=== PATIENT | female | born 1955 | race Caucasian/White ===

== ENCOUNTER → 2017-06-25 | Emergency (ER) | payer OTHER ==
[~2017-06-25] VITALS: Ht 162.6 cm; Wt 79.4 kg
[~2017-06-25] MED LIST: ATENOLOL100 MG PO; CEPHALEXIN500 MG PO; DOXEPIN HCL10 MG PO; DOXYCYCLINE HY100 MG PO; ESTRACE1 MG PO; GABAPENTIN300 MG PO; IPRAT-ALBUT 0.5-3 ML INH; LACTULOSE10 GM/151 PO; LEVOTHYROXINE50 MCG PO; LISINOPRIL10 MG PO; LYRICA150 MG PO; MORPHINE SULFAT15 M1 PO; NORCO 5-325 TA1 EACH PO; OXYCODON-ACETA1 EAC2 PO; OXYCODONE HCL5 MG PO; OXYCODONE-ACET1 EAC3 PO; PERCOCET 5-3251 EACH PO; PREDNISONE20 MG PO; ROBAXIN-750750 MG PO; ROBAXIN500 MG PO; TIZANIDINE HCL4 MG PO; ZOFRAN ODT4 MG SL
== END ==
LOC: ED 00:16
DX: J20.9 Acute bronchitis, unspecified (principal); I10 Essential (primary) hypertension; Z87.891 Personal history of nicotine dependence; Z90.710 Acquired absence of both cervix and uterus; Z79.899 Other long term (current) drug therapy
CPT/HCPCS: 71020; 99283

== ENCOUNTER 2017-09-21 09:55 | Day surgery (SDC) | payer OTHER ==
[~2017-09-21] VITALS: Ht 162.6 cm; Wt 93.0 kg
--- NOTE | 2017-09-21 11:10 | NUR ---
09/21/17 1110 Maryam Maza 1104-MAXIMILIANO ARRIVED TO PACU ON 10L MASK O2 SAT 100% PATIENT NONAROUSABLE ORAL AIRWAY IN PLACE. JEET TOOK HOME AM MEDS. RN HOLDING AIRWAY.
--- NOTE | 2017-09-29 10:17 | OR ---
[facility] [address] [place], [place] [address] Signed DATE OF OPERATION: 09/21/2017 SURGEON: Soraida Campbell MD PREOPERATIVE DIAGNOSES: 1. Gastroesophageal reflux disease. 2. Esophageal dysphagia (lump). 3. Change in voice (raspy). POSTOPERATIVE DIAGNOSIS: Unremarkable upper endoscopy. PROCEDURES: EGD with CLOtest and antral biopsies. ESTIMATED BLOOD LOSS: None. INDICATIONS: Aydee is a 62-year-old female, who has had trouble with acid reflux for years. She takes Prilosec with good results. She has also had previous sinus surgery and a history of asthma. She has had some trouble lately with wheezing and coughing and feels a lump in her throat. She points towards the sternal notch and her larynx. She said it has been there at least 5 months. She has also had some pain in her ears. She has been on antibiotics and prednisone with some help. However, when she stops the medication, the symptoms seem to return. She told me her voice is much more raspy than usual. She had put on thyroid medication and that has helped her with some of her other issues. Given her current symptoms, she was asked to see me for an upper endoscopy. In the office, I gave Aydee a pamphlet on upper endoscopy and we looked at that together along with the risks including, but not limited to gas bloating, crampy abdominal pain, bleeding, perforation, requiring surgery, and missed diagnosis. In addition, we discussed the need for IV conscious sedation. Aydee has had trouble with chronic pain since her lumbar surgery and she requires 10 to 12 oxycodone per day. Consequently, our simple Versed and fentanyl would not be enough to get her sleep. We therefore asked an anesthesia provider to help us with increased monitoring sedation with propofol. She had expressed understanding and wished to proceed. PROCEDURE NOTE: Aydee was taken into our endoscopy suite and placed in a supine semi-recumbent position. She was given IV sedation with propofol per our nurse senior clinical project manager. As expected, it Electronically Signed By: SORAIDA CAMPBELL MD 09/29/17 1017 PATIENT NAME: AYDEE DINH OPERATIVE REPORT DATE OF : 59 PHYSICIAN: SORAIDA CAMPBELL MD REPORT #: [id number] REPORT IS CONFIDENTIAL AND NOT TO BE RELEASED WITHOUT AUTHORIZATION [facility] [address] [place] [id number] Signed bothers her arm a little more than most patients. This was consistent with her chronic pain syndromes and her narcotic use. Once she was fully sedated, we placed her a bite block between her teeth. The adult gastroscope was then introduced and advanced all the way around into the third portion of the duodenum under direct visualization of camera without difficulty. She told me about her previous sphincter of Oddi dysfunction, requiring endoscopic sphincterotomy. With our forward-viewing scope, however, we could not see the ampulla. Otherwise, the duodenum and pyloric channel were unremarkable. The stomach was entirely unremarkable. We took a biopsy of the antrum for CLOtest as well as pathologic review. Upon retroflexion of the scope, there was no evidence of an obvious hiatal hernia. She may have a poor flap valve mechanism. The scope was withdrawn up through the area of the GE junction, which was compliant without stricture. The Z-line remains intact. There was no Wesley's mucosa, no distal esophagitis. The middle and upper esophagus were unremarkable. After this, the gas was suctioned out and the gastroscope removed. Aydee tolerated the procedure quite well. RECOMMENDATIONS: I will see Aydee back in the office in a week or 2 to follow up not only her EGD, but her barium swallow as well. Soraida Campbell MD ALB/MODL /[id number] cc: MD Dennis Story MD Christopher Lundquist, MD Electronically Signed By: SORAIDA CAMPBELL MD 09/29/17 1017 PATIENT NAME: AYDEE DINH ADOLFO OPERATIVE REPORT DATE OF : 59 PHYSICIAN: SORAIDA CAMPBELL MD REPORT #: [id number] REPORT IS CONFIDENTIAL AND NOT TO BE RELEASED WITHOUT AUTHORIZATION
== END 2017-09-21 11:47 | disposition home or self-care (01) ==
LOC: OPS 09:55 → DS 09:55
PROVIDERS: Colon & Rectal Surgery
PROC: 0DB68ZX Excision of Stomach, Via Natural or Artificial Opening Endoscopic, Diagnostic (ICD-10-PCS; principal; 2017-09-21 10:15)
DX: K29.50 Unspecified chronic gastritis without bleeding (principal); K21.9 Gastro-esophageal reflux disease without esophagitis; Z90.49 Acquired absence of other specified parts of digestive tract; Z90.710 Acquired absence of both cervix and uterus; Z98.890 Other specified postprocedural states; Z79.899 Other long term (current) drug therapy
CPT/HCPCS: 86677; 99156; 99157; J2704; J7120

== ENCOUNTER 2018-04-23 22:18 | Emergency (ER) | payer OTHER, MEDICARE ==
[~2018-04-23] VITALS: Ht 162.6 cm; Wt 93.0 kg
--- OUTSIDE RECORDS SUMMARY | ~2018-04-23 | XMS | Encounter Summary ---
Demographics + + + | Address | [address] | | | [place] [address] | + + + | Home Phone | | + + + | Preferred Language | Unknown | + + + | Marital Status | | + + + | Catholic Affiliation | 1041 | + + + | Race | Unknown | + + + | Ethnic Group | Unknown | + + + Author + + + | Author | [facility] | | | and [place] | + + + | Organization | [facility] | | | and [place] | + + + | Address | Unknown | + + + | Phone | Unavailable | + + + Support + + + + + | Name | Relationship | Address | Phone | + + + + + | Chau Charles | ECON | [address] | | | | | [place], [place] | | | | | [address] | | + + + + + | Emma Wheeler | ECON | NA | | | | | [place] | | + + + + + | Chalo Pascal | ECON | NA | | | | | [place] | | + + + + + Care Team Providers + +------+ + | Care Grinding Wheel Inspector Name | Role | Phone | + +------+ + | Alexander Costa MD | PCP | | + +------+ + Reason for Referral Diagnostic/Screening (Routine) +--------+--------+ + + + + | Status | Reason | Specialty | Diagnoses / | Referred By | Referred To | | | | | Procedures | Contact | Contact | +--------+--------+ + + + + | Closed | | Radiology | Diagnoses | [place], | [facility] | | | | | S/P lumbar | [place] | [address] | | | | | fusion | [place] | [place], | | | | | Lumbar | [address] | [place] | | | | | radiculopath | [address] | [address] | | | | | y | [address] | Phone: | | | | | Sacroiliac | Janice [place], | [phone] | | | | | joint pain | [place] [address] | Fax: | | | | | Procedures | Phone: | [phone] | | | | | MRI Lumbar | [phone] | | | | | | Spine w wo | Fax: | | | | | | Contrast | [phone] | | | | | | 02/07 Call to | | | | | | | pt to see | | | | | | | where she | | | | | | | would like | | | | | | | it done. | | | +--------+--------+ + + + + Diagnostic/Screening (Routine) +--------+--------+ + + + + | Status | Reason | Specialty | Diagnoses / | Referred By | Referred To | | | | | Procedures | Contact | Contact | +--------+--------+ + + + + | Closed | | Radiology | Diagnoses | [place], | [facility] | | | | | S/P lumbar | [place] | [address] | | | | | fusion | [place] | Janice Camacho, | | | | | Lumbar | [address] | [place] | | | | | radiculopath | [address] | [address] | | | | | y | [address] | Phone: | | | | | Sacroiliac | [place], | [phone] | | | | | joint pain | [place] [address] | Fax: | | | | | Procedures | Phone: | [phone] | | | | | MRI Lumbar | [phone] | | | | | | Spine w wo | Fax: | | | | | | Contrast | [phone] | | | | | | 02/07 Call to | | | | | | | pt to see | | | | | | | where she | | | | | | | would like | | | | | | | it done. | | | +--------+--------+ + + + + Reason for Visit Diagnostic/Screening (Routine) +--------+--------+ + + + + | Status | Reason | Specialty | Diagnoses / | Referred By | Referred To | | | | | Procedures | Contact | Contact | +--------+--------+ + + + + | Closed | | Radiology | Diagnoses | [place], | [facility] | | | | | S/P lumbar | [place] | [address] | | | | | fusion | [place] | Janice Camacho, | | | | | Lumbar | [address] | [place] | | | | | radiculopath | [address] | [address] | | | | | y | [address] | Phone: | | | | | Sacroiliac | [place], | [phone] | | | | | joint pain | [place] [address] | Fax: | | | | | Procedures | Phone: | [phone] | | | | | MRI Lumbar | [phone] | | | | | | Spine w wo | Fax: | | | | | | Contrast | [phone] | | | | | | 02/07 Call to | | | | | | | pt to see | | | | | | | where she | | | | | | | would like | | | | | | | it done. | | | +--------+--------+ + + + + Encounter Details +--------+ + + + + | Date | Type | Department | Care Team | Description | +--------+ + + + + | 04/03/ | Hospital | [facility] | [facility] | S/P lumbar fusion; | | 2017 | Encounter | [facility] MRI [address] | [place] [address] | Lumbar | | | | [address], | [address] | radiculopathy; | | | | [place] [address] | [place], [place] | Sacroiliac joint | | | | [phone] | [address] | pain | | | | | | | +--------+ + + + + Social History + + + +--------+ + | Tobacco Use | Types | Packs/Day | Years | Date | | | | | Used | | + + + +--------+ + | Former Smoker | Cigarettes | 0.5 | 15 | Quit: 08/29/2008 | + + + +--------+ + + +---+---+---+ | Smokeless Tobacco: | | | | | Never Used | | | | + +---+---+---+ + + +---------+ + | Alcohol Use | Drinks/We | oz/Week | Comments | | | ek | | | + + +---------+ + | No | 0 | 0.0 | Alcoholic in remission | | | Standard | | | | | drinks or | | | | | | | | | | equivalen | | | | | t | | | + + +---------+ + + + + | Sex Assigned at | Date Recorded | | | | + + + | Not on file | | + + + as of this encounter Medications at Time of Discharge + + +-------+---------+ + + | Medication | Sig. | Disp. | Refills | Start | End Date | | | | | | Date | | + + +-------+---------+ + + | atenolol | Take 100 mg by mouth | | | | | | (TENORMIN) 100 MG | Daily. | | | | | | tablet | | | | | | + + +-------+---------+ + + | buprenorphine | DIS 1 T UNT TID TO | | 0 | 01/27/20 | | | (SUBUTEX) 8 mg SUBL | LAST 28 DAYS. | | | 18 | | + + +-------+---------+ + + | DULoxetine | TK 1 C PO BID | | 1 | 01/20/20 | | | (CYMBALTA) [address] | | | | 18 | | | capsule | | | | | | + + +-------+---------+ + + | estradiol | Take 1 mg by mouth | | | | | | (ESTRACE) 1 mg | Daily. | | | | | | tablet | | | | | | + + +-------+---------+ + + | levothyroxine | Take 50 mcg by mouth | | | | | | (SYNTHROID) 50 mcg | every morning | | | | | | tablet | (before breakfast). | | | | | + + +-------+---------+ + + | lisinopril | Take 5 mg by mouth | | 12 | 08/09/20 | | | (PRINIVIL, ZESTRIL) | Daily. | | | 17 | | | 5 mg tablet | | | | | | + + +-------+---------+ + + | meloxicam (MOBIC) | Take 7.5 mg by mouth | | | | | | 7.5 mg tablet | Daily. | | | | | + + +-------+---------+ + + | methocarbamol | Take 2 tablets by | | 2 | 08/24/20 | | | (ROBAXIN) 750 mg | mouth nightly. | | | 17 | | | tablet | | | | | | + + +-------+---------+ + + | NARCAN 4 MG/0.1ML | U UTD FOR EMERGENCY | | 0 | 08/15/20 | | | | | | | 17 | | + + +-------+---------+ + + | pregabalin | Take 150 mg by mouth | | | | | | (LYRICA) 150 MG | 2 times daily. | | | | | | capsule | | | | | | + + +-------+---------+ + + | traZODone | TK 1 T PO QHS | | 0 | 01/13/20 | | | (DESYREL) 100 mg | | | | 18 | | | tablet | | | | | | + + +-------+---------+ + + as of this encounter Plan of Treatment +--------+---------+ + + + | Date | Type | Specialty | Care Team | Description | +--------+---------+ + + + | 05/17/ | Office | Neurosurgery | [facility] | | | 2018 | Visit | | [facility] [address] | | | | | | [address] | | | | | | [place] | | | | | | [address] | | | | | | | | +--------+---------+ + + + as of this encounter Procedures + +--------+ + + + | Procedure Name | Priori | Date/Time | Associated Diagnosis | Comments | | | ty | | | | + +--------+ + + + | MRI LUMBAR SPINE W | Routin | 04/03/2018 | S/P lumbar fusion | Results for this | | WO CONTRAST | e | 1443 PDT | Lumbar | procedure are in the | | | | | radiculopathy | results section. | | | | | Sacroiliac joint | | | | | | pain | | + +--------+ + + + in this encounter Results MRI Lumbar Spine w wo Contrast (04/03/2018 1443) + + + | Narrative | Performed At | + + + | MRI LUMBAR SPINE W WO CONTRAST 04/03/2018 2:00 PM HISTORY: | [facility] | | Previous lumbar fusion with ongoing radicular right greater than left | | | leg symptoms. COMPARISON: Multiple priors. PROTOCOL: Sagittal | | | T2, sagittal T1, axial T2, axial T1, sagittal STIR, coronal T2, | | | sagittal T1 fat sat postgadolinium, axial T1 fat sat post gadolinium. | | | The patient was administered 9 cc Gadavist. FINDINGS: There is | | | hardware for posterior fusion from L4 through S1. Interbody hardware | | | are observed from L3-4 through L5-S1. The interbody hardware at L3-4 | | | extends slightly beyond the anterior borders of the vertebral bodies, | | | as before. The hardware are intact otherwise. There is mild | | | spondylosis. There remains minimal anterolistheses of L3 over L4 and | | | L4 over L5. Vertebral body height are preserved with no evidence for | | | compression fractures. Mild disc narrowing is at L2-3. Disc | | | desiccation are observed of the lower thoracic spine and lumbar | | | spine. Imaged spinal cord and cauda equina demonstrate normal | | | signal with no evidence for myelomalacia or mass lesions. The conus | | | medullaris terminates at level L1, which is normal. Sagittal | | | images demonstrate tiny posterior disc bulging at T11-12 with no | | | stenosis. L2-3: A 3 mm posterior disc bulge is present along with | | | moderate facet hypertrophy and ligamentum flavum hypertrophy. Small | | | facet effusions are present. There is severe central stenosis with AP | | | dimension of the canal measuring 5 mm. Mild to moderate bilateral | | | neural foraminal canal stenoses are seen. L3-4: Congenitally | | | short pedicles are visualized along with moderate facet hypertrophy. | | | There is mild central stenosis with AP dimension of the canal | | | measuring 10 mm. No neural foraminal canal stenosis is seen. | | | L4-5: Moderate facet hypertrophy is present with no stenosis. | | | L5-S1: No central canal or neural foramina canal stenosis. Imaged | | | abdomen and pelvis demonstrate no acute findings. IMPRESSION - | | | Posterior fusion from L4 through S1. Multilevel degenerative | | | changes including severe central stenosis at L2-3 and mild central | | | stenoses at L3-4. Mild to moderate bilateral neural foraminal canal | | | stenoses are at L2-3. Dictated and Signed by: Gildardo Boyle MD | | | Electronically signed: 04/03/2018 3:54 PM | | + + + + + | Procedure Note | + + | [place], Rad Results In - 04/03/2018 1558 PDT MRI LUMBAR SPINE W WO CONTRAST 04/03/2018 | | 2:00 PM HISTORY: Previous lumbar fusion with ongoing radicular right greater than | | leftleg symptoms.COMPARISON: Multiple priors.PROTOCOL: Sagittal T2, sagittal T1, axial | | T2, axial T1, sagittal STIR, coronalT2, sagittal T1 fat sat postgadolinium, axial T1 fat | | sat post gadolinium. Thepatient was administered 9 cc Gadavist.FINDINGS:There is | | hardware for posterior fusion from L4 through S1. Interbody hardwareare observed from | | L3-4 through L5-S1. The interbody hardware at L3-4 extendsslightly beyond the anterior | | borders of the vertebral bodies, as before. Thehardware are intact otherwise. There is | | mild spondylosis. There remains minimalanterolistheses of L3 over L4 and L4 over L5. | | Vertebral body height arepreserved with no evidence for compression fractures.Mild disc | | narrowing is at L2-3. Disc desiccation are observed of the lowerthoracic spine and | | lumbar spine.Imaged spinal cord and cauda equina demonstrate normal signal with no | | evidencefor myelomalacia or mass lesions. The conus medullaris terminates at level | | L1,which is normal.Sagittal images demonstrate tiny posterior disc bulging at T11-12 | | with nostenosis.L2-3: A 3 mm posterior disc bulge is present along with moderate | | facethypertrophy and ligamentum flavum hypertrophy. Small facet effusions arepresent. | | There is severe central stenosis with AP dimension of the canalmeasuring 5 mm. Mild to | | moderate bilateral neural foraminal canal stenoses areseen.L3-4: Congenitally short | | pedicles are visualized along with moderate facethypertrophy. There is mild central | | stenosis with AP dimension of the canalmeasuring 10 mm. No neural foraminal canal | | stenosis is seen. L4-5: Moderate facet hypertrophy is present with no stenosis. L5-S1: | | No central canal or neural foramina canal stenosis.Imaged abdomen and pelvis demonstrate | | no acute findings.IMPRESSION -Posterior fusion from L4 through S1.Multilevel | | degenerative changes including severe central stenosis at L2-3 andmild central stenoses | | at L3-4. Mild to moderate bilateral neural foraminal canalstenoses are at L2-3.Dictated | | and Signed by: Gildardo Boyle MD Electronically signed: 04/03/2018 3:54 PM | |Sagittal images demonstrate tiny posterior disc bulging at T11-12 with no | |stenosis. | | | |L2-3: A 3 mm posterior disc bulge is present along with moderate facet | |hypertrophy and ligamentum flavum hypertrophy. Small facet effusions are | |present. There is severe central stenosis with AP dimension of the canal | |measuring 5 mm. Mild to moderate bilateral neural foraminal canal stenoses are | |seen. | | | |L3-4: Congenitally short pedicles are visualized along with moderate facet | |hypertrophy. There is mild central stenosis with AP dimension of the canal | |measuring 10 mm. No neural foraminal canal stenosis is seen. | | | |L4-5: Moderate facet hypertrophy is present with no stenosis. | | | |L5-S1: No central canal or neural foramina canal stenosis. | | | |Imaged abdomen and pelvis demonstrate no acute findings. | | | |IMPRESSION - | |Posterior fusion from L4 through S1. | | | |Multilevel degenerative changes including severe central stenosis at L2-3 and | |mild central stenoses at L3-4. Mild to moderate bilateral neural foraminal canal | |stenoses are at L2-3. | | | |Dictated and Signed by: Gildardo Boyle MD | | Electronically signed: 04/03/2018 3:54 PM | + + + +---------+ + + | Performing | Address | City/State/Zipcode | Phone Number | | Organization | | | | + +---------+ + + | [facility] | | | | + +---------+ + + in this encounter Visit Diagnoses + + | Diagnosis | + + | S/P lumbar fusion | + + | Arthrodesis status | + + | Lumbar radiculopathy | + + | Thoracic or lumbosacral neuritis or radiculitis, unspecified | + + | Sacroiliac joint pain | + + | Disorders of sacrum | + + Administered Medications + +--------+ +-------+------+------+ | Medication Order | MAR | Action | Dose | Rate | Site | | | Action | Date | | | | + +--------+ +-------+------+------+ | gadobutrol (GADAVIST) injection | Given | 04/03/2018 | 9 mLs | | | | 9 mL 9 mL, Intravenous, ONCE | | 14:29 | | | | | PRN, Other, Starting 04/03/18 | | PDT | | | | | at 1414, For 1 dose, MRI | | | | | | + +--------+ +-------+------+------+ +---+---+ | | | +---+---+ in this encounter"
--- OUTSIDE RECORDS SUMMARY | ~2018-04-23 | XMS | Encounter Summary ---
Demographics + + + | Address | [address] | | | [place] [address] | + + + | Home Phone | | + + + | Preferred Language | Unknown | + + + | Marital Status | | + + + | Anabaptist Affiliation | 1041 | + + + | Race | Unknown | + + + | Ethnic Group | Unknown | + + + Author + + + | Author | [facility] | | | and [place] | + + + | Organization | [facility] | | | and [facility] | + + + | Address | Unknown | + + + | Phone | Unavailable | + + + Support + + + + + | Name | Relationship | Address | Phone | + + + + + | Chau Charles | ECON | [address] | | | | | [place], [place] | | | | | [address] | | + + + + + | Emma Wheeler | ECON | NA | | | | | [place] | | + + + + + | Chalo Pascal | ECON | NA | | | | | [place] | | + + + + + Care Team Providers + +------+ + | Care Car Tracer Name | Role | Phone | + +------+ + | Rasheed Anders MD | PCP | | + +------+ + Encounter Details +--------+ + + + + | Date | Type | Department | Care Team | Description | +--------+ + + + + | 04/19/ | Transcribed | [facility] | Regis Tomlin | Pre-operative | | 2018 | Orders | MED CTR | MD Hillary [address] | laboratory | | | | ELECTRODIAGNOSTICS | [facility] | examination (Primary | | | | [address] [place] | [place] [address] | Dx); Swelling of | | | | [place] [address] | [phone] | limb; Chronic pain | | | | [phone] | | syndrome; | | | | | | Postlaminectomy | | | | | | syndrome, cervical | | | | | | region | +--------+ + + + + Social [...] + + + as of this encounter Plan of Treatment +--------+---------+ + + + | Date | Type | Specialty | Care Team | Description | +--------+---------+ + + + | 05/17/ | Office | Neurosurgery | [facility] | | | 2018 | Visit | | [facility] [address] | | | | | | [address] | | | | | | [place] | | | | | | [address] | | | | | | | | +--------+---------+ + + + + +--------+ + + | Name | Priori | Associated Diagnoses | Order Schedule | | | ty | | | + +--------+ + + | ECG 12 lead | Routin | Pre-operative | 1 Occurrences | | | e | laboratory | starting 04/19/2018 | | | | examination | until 04/19/2019 | | | | Swelling of limb | | | | | Chronic pain | | | | | syndrome | | | | | Postlaminectomy | | | | | syndrome, cervical | | | | | region | | + +--------+ + + | ECG 12 lead | Routin | Pre-operative | 1 Occurrences | | | e | laboratory | starting 04/19/2018 | | | | examination | until 04/19/2019 | | | | Swelling of limb | | | | | Chronic pain | | | | | syndrome | | | | | Postlaminectomy | | | | | syndrome, cervical | | | | | region | | + +--------+ + + as of this encounter Visit Diagnoses + + | Diagnosis | + + | Pre-operative laboratory examination - Primary | + + | Pre-procedural laboratory examination | + + | Swelling of limb | + + | Chronic pain syndrome | + + | Postlaminectomy syndrome, cervical region | + +"
--- OUTSIDE RECORDS SUMMARY | ~2018-04-23 | XMS | Encounter Summary ---
Demographics + + + | Address | [address] | | | [place] [address] | + + + | Home Phone | | + + + | Preferred Language | Unknown | + + + | Marital Status | | + + + | Protestant Affiliation | 1041 | + + + | Race | Unknown | + + + | Ethnic Group | Unknown | + + + Author + + + | Author | [facility] | | | and [facility] | + + + | Organization | [facility] | | | and [facility]idenc[facility]ana [...] [address], [place] | | | | | [address] | | + + + + + | Emma Wheeler | ECON | NA | | | | | [place] | | + + + + + | Chalo Pascal | ECON | NA | | | | | MART AR[place]UELLO | | + + + + + Care Team Providers + +------+ + | Care Warehouse Consultant Name | Role | Phone | + [...] S/P lumbar | Moises | [address] | | | | | fusion | YUE Man | Janice Camacho, | | | | | Lumbar | [address] | [place] | | | | | radiculopath | [address] | [address] | | | | | y | [address] | Phone: | | | | | Sacroiliac | Janice Camacho, | [phone] | | | | | joint pain | [place] [address] | Fax: | | | | | Procedures | Phone: | [phone] | | | | | MRI Lumbar | [phone] | | | | | | Spine w wo | Fax: | | | | | | Contrast | [phone] | | | | | | 02/07 Call to | | | | | | | pt to see | | | | | | | where she | | | | | | | would like | | | | | | | it done. | | | +--------+--------+ + + + + Reason for Visit + + + | Reason | Comments | + + + | Follow-up | discuss CT | + + + Encounter Details +--------+---------+ + + + | Date | Type | Department | Care Team | Description | +--------+---------+ + + + | 01/31/ | Office | [facility] | Moises Barajas | S/P lumbar fusion | | 2017 | Visit | NEUROSURGERY [address] | [place] [address] | (Primary Dx); Lumbar | | | | [address] | [address] | radiculopathy; | | | | [place], [place] | [place] | Sacroiliac joint | | | | [address] | [address] | pain | | | | [phone] | | | +--------+---------+ + + + Social History + + [...] + + + as of this encounter Last Filed Vital Signs + + + + | Vital Sign | Reading | Time Taken | + + + + | Blood Pressure | 126/93 | 01/31/2018 1321 PDT | + + + + | Pulse | 64 | 01/31/2018 1321 PDT | + + + + | Temperature | - | - | + + + + | Respiratory Rate | 16 | 01/31/20181320 PDT | + + + + | Oxygen Saturation | - | - | + + + + | Inhaled Oxygen | - | - | | Concentration | | | + + + + | Weight | 95.7 kg (210 lb 15.7 | 01/31/20181320 PDT | | | oz) | | + + + + | Height | 162.6 cm (5' 4") | 01/31/20181320 PDT | + + + + | Body Mass Index | 36.21 | 01/31/2018 1321 PDT | + + + + in this encounter Instructions Patient Instructions - Pratibha Leos, Animal Care Worker - 01/31/[address]ure to see you today. Here is what we discussed. 1. Repeat the lumbar MRI . Please call when you have completed the MRI so that we can revi ew the results and contact you 2. See about getting a bone growth stimulator in this encounter Progress Notes Moises Barajas PA-C - 01/31/2018 0470 PDTFormatting of this note may be different fr om the original. Moises Barajas PA-C [address] [facility], [address] [place] [address] FAX: NEUROSURGERY FOLLOW-UP CHIEF COMPLAINT: Chief Complaint Patient presents with Follow-up discuss CT HISTORY OF PRESENT ILLNESS: The patient is a 62 y.o. female that had a Lumbar fusion with revision for back pain and leg pain around 2.5 years ago. She returns and overall is doing poorly. She is now experiencing pain is in her lower back that radiates down her back into b oth hips. The pain goes down both legs, but the right leg is much worse. The right foot is n umb and tingles off and on. Her right foot will ache really bad at night. She has swelling i n her lower legs and feet at night.Her third toe is always feeling like its on fire. She sta rosalba that she feels like she does not have a life. She tries to do "life" but her symptoms ar e cripiling. She has been on the Suboxone since 01/05/18 as she has been having a lot of pain . Patient was on the Oxycodone and wanted to get off of it after being on it for 2-3 years. She did not realize how much pain the Oxycodone was taking care of and helping with. The patient is working with [facility]. She is very pleased with her approach to her pain. They are considering a spinal cord stimulator but wanted to check here before that was scheduled. They also completed nerve testing. We will work to get a copy of this CURRENT MEDICATIONS: Current Outpatient Prescriptions Medication Sig Dispense Refill atenolol (TENORMIN) 100 MG tablet Take 100 mg by mouth Daily. buprenorphine (SUBUTEX) 8 mg SUBL DIS 1 T UNT TID TO LAST 28 DAYS. 0 DULoxetine (CYMBALTA) [address] capsule TK 1 C PO BID 1 estradiol (ESTRACE) 1 mg tablet Take 1 mg by mouth Daily. levothyroxine (SYNTHROID) 50 mcg tablet Take 50 mcg by mouth every morning (before asif kfast). lisinopril (PRINIVIL, ZESTRIL) 5 mg tablet Take 5 mg by mouth Daily. 12 meloxicam (MOBIC) 7.5 mg tablet Take 7.5 mg by mouth Daily. methocarbamol (ROBAXIN) 750 mg tablet Take 2 tablets by mouth nightly. 2 NARCAN 4 MG/0.1ML U UTD FOR EMERGENCY 0 pregabalin (LYRICA) 150 MG capsule Take 150 mg by mouth 2 times daily. traZODone (DESYREL) 100 mg tablet TK 1 T PO QHS 0 No current facility-administered medications for this visit. ALLERGIES: Allergies Allergen Reactions Tizanidine Other (See Comments) Hallucinations SOCIAL HISTORY: The patient reports that she quit smoking about 9 years ago. Her smoking use included Ciga rettes. She has a 7.50 pack-year smoking history. She has never used smokeless tobacco. She reports that she does not drink alcohol or use drugs. REVIEW OF SYSTEMS GENERALLY: No fever, no night sweats, no anemia, no fatigue, no recent profound weight ch anges. EYES: No eye problems, no use of corrective lenses, no eye injury, no double vision, no bl indness. EARS, NOSE, AND THROAT: No changes in taste or smell, no hearing difficulty, no ringing in the ears, no ear drainage, no dizziness, no voice changes, no difficulty swallowing, + sign ificant snoring, no sleep apnea, no sinus problems, no major dental work. NEUROLOGICALLY: Please see the review of systems discussed above in the history of present illness. In addition, the patient has numbness/pain of legs, awake with numbness/pain,weak ness, muscle aching, coordination difficulty, change in gait. PSYCHIATRIC: No depression, no sleep disorders, no anxiety, no bipolar disorder, no psycho tic episodes. CARDIOVASCULAR: No heart attacks, no heart murmur, no heart fluttering, no chest pain, no ankle swelling. LUNG DISEASE: No shortness of breath, no cough, no tuberculosis, no bloody cough, no asth ma, no emphysema/COPD. GASTROINTESTINAL: No bowel disease, no nausea or vomiting, no rectal bleeding, no constipa tion, no stool incontinence, no liver disease, no gallbladder disease, no abdominal pain, no ulcers. KIDNEY DISEASE: No urinary frequency, no painful or difficult urination, no incontinence. ENDOCRINE: No diabetes, no thyroid disease, no osteopenia or osteoporosis, no breast drain age. SKIN: No breast lumps, no skin changes, no rashes, no itches. HEMATOLOGIC/LYMPHATIC: No enlarged lymph nodes, no easy or unusual bleeding, no personal h istory of cancer. RHEUMATOLOGIC: No joint arthritis, no rheumatoid arthritis. INTERIM PHYSICAL EXAMINATION: Blood pressure (!) 126/93, pulse 64, resp. rate 16, height 1.626 m (5' 4"), weight 95.7 kg (210 lb 15.7 oz), not currently . Body mass index is 36.21 kg/m. GENERAL: Aydee Charles is in no acute distress with unlabored respirations. SPINE: The patient s incisions are healing well without drainage, significant erythema, o r discharge. EXTREMITIES: No lower extremity edema. NEUROLOGICAL EXAMINATION: MENTAL STATUS: The patient is awake, alert, and oriented. She follows simple and complex commands MOTOR EXAM: Motor strength is 4+ with dorsiflexion and EHL testing on the right side. SENSORY EXAM: The sensory examination is showing decreased sensation over the top of her fo ot and into the web space between the first and second toe RADIOGRAPHIC REVIEW: The patient s x-rays show stable instrumentation and alignment and were reviewed with the patient today. Stable hardware. There is some subsidence at L4-5 but I do not believe it is significantly progressed ASSESSMENT: Encounter Diagnoses Name Primary? 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 Unfortunately the patient continues with some back sandy n as well as right leg pain. This is not improving. I would like the patient have an MRI of her lumbar spine. Once this is completed she will let us know and we will review this as well as a nerve testing and the CT scan and make furt her recommendations. Talked about the possibility of a bone growth stimulator. She will co kamari working with her primary care provider as well as her pain medicine clinic ELECTRONICALLY SIGNED BY: Moises Barajas PA-C , 01/31/2018 14:00 I, Moises Barajas PA-C, personally performed the services described in this documentation , as scribed by Pratibha Leos MA in my presence, and it is both accurate and complete. Moises Barajas PA-C 01/31/2018 in this encounter Plan of Treatment +--------+---------+ + + + | Date | Type | Specialty | Care Team | Description | +--------+---------+ + + + | 05/17/ | Office | Neurosurgery | Moises Barajas | | | 2017 | Visit | | [facility] [facility] [address] | | | | | | [facility] [address] | | | | | | [place], [place] | | | | | | [address] | | | | | | | | +--------+---------+ + + + as of this encounter Procedures + +--------+ + + + | Procedure Name | Priori | Date/Time | Associated Diagnosis | Comments | | | ty | | | | + +--------+ + + + | DIAGNOSTIC REPORT - | | 09/19/2017 | | Results for this | | EXTERNAL SCAN | | 0000 PST | | procedure are in the | | | | | | results section. | + +--------+ + + + in [...] | | | + +---------+ + + DIAGNOSTIC REPORT - EXTERNAL SCAN (09/19/2017) + + + | Narrative | Performed At | + + + | Ordered by an | | | unspecified provider. | | + + + in this encounter Visit Diagnoses + + | Diagnosis | + + | S/P lumbar fusion - Primary | + + | Arthrodesis status | + + | Lumbar radiculopathy | + + | Thoracic or lumbosacral neuritis or radiculitis, unspecified | + + | Sacroiliac joint pain | + + | Disorders of sacrum | + +
--- OUTSIDE RECORDS SUMMARY | ~2018-04-23 | XMS | Clinical Summary ---
Demographics + + + | Address | [address] | | | [place] [address] | + + + | Home Phone | | + + + | Preferred Language | Unknown | + + + | Marital Status | | + + + | Islam Affiliation | 1041 | + + + | Race | Unknown | + + + | Ethnic Group | Unknown | + + + Author + + + | Author | [facility] | | | and [facility] | + + + | Organization | [facility] | | | and [facility] [...] [address], [place] | | | | | [address] | | + + + + + | Emma Wheeler | ECON | NA | | | | | [place] | | + + + + + | Chalo Pascal | ECON | NA | | | | | [place] | | + + + + + Care Team Providers + +------+ + | Care Car Dispatcher Name | Role | Phone | + +------+ + | Rasheed Anders MD | PP | | + +------+ + Allergies + + + + + + | Active Allergy | Reactions | Severity | Noted | Comments | | | | | Date | | + + + + + + | Tizanidine | Other (See Comments) | | 08/25/20 | Hallucinations | | | | | 15 | | + + + + + + Current Medications + + +-------+---------+------+------+-------+ | Prescription | Sig. | Disp. | Refills | Star | End | Statu | | | | | | t | Date | s | | | | | | Date | | | + + +-------+---------+------+------+-------+ | atenolol | Take 100 mg by mouth | | | | | Activ | | (TENORMIN) 100 MG | Daily. | | | | | e | | tablet | | | | | | | + + +-------+---------+------+------+-------+ | lisinopril | Take 5 mg by mouth | | 12 | 12/1 | | Activ | | (PRINIVIL, ZESTRIL) | Daily. | | | 2/20 | | e | | 5 mg tablet | | | | 17 | | | + + +-------+---------+------+------+-------+ | methocarbamol | Take 2 tablets by | | 2 | 12/2 | | Activ | | (ROBAXIN) 750 mg | mouth nightly. | | | 7/20 | | e | | tablet | | | | 17 | | | + + +-------+---------+------+------+-------+ | NARCAN 4 MG/0.1ML | U UTD FOR EMERGENCY | | 0 | 12/1 | | Activ | | | | | | 8/20 | | e | | | | | | 17 | | | + + +-------+---------+------+------+-------+ | estradiol | Take 1 mg by mouth | | | | | Activ | | (ESTRACE) 1 mg | Daily. | | | | | e | | tablet | | | | | | | + + +-------+---------+------+------+-------+ | levothyroxine | Take 50 mcg by mouth | | | | | Activ | | (SYNTHROID) 50 mcg | every morning | | | | | e | | tablet | (before breakfast). | | | | | | + + +-------+---------+------+------+-------+ | pregabalin | Take 150 mg by mouth | | | | | Activ | | (LYRICA) 150 MG | 2 times daily. | | | | | e | | capsule | | | | | | | + + +-------+---------+------+------+-------+ | meloxicam (MOBIC) | Take 7.5 mg by mouth | | | | | Activ | | 7.5 mg tablet | Daily. | | | | | e | + + +-------+---------+------+------+-------+ | buprenorphine | DIS 1 T UNT TID TO | | 0 | 05/3 | | Activ | | (SUBUTEX) 8 mg SUBL | LAST 28 DAYS. | | | 1/20 | | e | | | | | | 18 | | | + + +-------+---------+------+------+-------+ | DULoxetine | TK 1 C PO BID | | 1 | 05/2 | | Activ | | (CYMBALTA) [address] | | | | 4/20 | | e | | capsule | | | | 18 | | | + + +-------+---------+------+------+-------+ | traZODone | TK 1 T PO QHS | | 0 | 05/1 | | Activ | | (DESYREL) 100 mg | | | | 7/20 | | e | | tablet | | | | 18 | | | + + +-------+---------+------+------+-------+ Active Problems + + + | Problem | Noted Date | + + + | Sacroiliac joint pain | 06/17/2017 | + + + | Neuropathic pain | 12/10/2015 | + + + | S/P lumbar fusion | 06/06/2015 | + + + | Lumbar radiculopathy | 03/19/2014 | + + + | Degenerative disc disease, lumbar | 03/19/2014 | + + + | Foraminal stenosis of lumbar region | 03/19/2014 | + + + | SPINAL STENOSIS, LUMBAR | | + + + | HYPERTENSION | | + + + | DISC DISEASE, LUMBAR | | + + + | HERNIATED LUMBOSACRAL DISC | | + + + Resolved Problems + +--------+ + | Problem | Noted | Resolved | | | Date | Date | + +--------+ + | Spondylolisthesis of lumbar region | | | | | | 4 | + +--------+ + Encounters +--------+ + + + + | Date | Type | Specialty | Care Team | Description | +--------+ + + + + | 04/20/ | Transcribed | | Provider Not, In | | | 2017 | Orders | | System | | +--------+ + + + + | 04/19/ | Hospital | | Regis Tomlin | Pre-operative | | 2017 | Encounter | | MD Hillary | laboratory | | | | | | examination; | | | | | | Swelling of limb; | | | | | | Chronic pain | | | | | | syndrome; | | | | | | Postlaminectomy | | | | | | syndrome, cervical | | | | | | region | +--------+ + + + + | 04/19/ | Transcribed | | Regis Tomlin | Pre-operative | | 2017 | Orders | | MD Hillary | laboratory | | | | | | examination (Primary | | | | | | Dx); Swelling of | | | | | | limb; Chronic pain | | | | | | syndrome; | | | | | | Postlaminectomy | | | | | | syndrome, cervical | | | | | | region | +--------+ + + + + | 04/04/ | Telephone | | Abdulaziz Ibarra MD | Imaging Only (Lumbar | | 2017 | | | | MRI); Results, | | | | | | Imaging; Follow-up, | | | | | | Office Visit; | | | | | | Neurosurgery | | | | | | Appointment | +--------+ + + + + | 04/03/ | Hospital | | Moises Barajas | S/P lumbar fusion; | | 2017 | Encounter | | [place] | Lumbar | | | | | | radiculopathy; | | | | | | Sacroiliac joint | | | | | | pain | +--------+ + + + + | 02/02/ | Telephone | | Abdulaziz Ibarra MD | Referral (Follow up) | | 2017 | | | | | +--------+ + + + + | 01/31/ | Office | | Moises Barajas | S/P lumbar fusion | | 2017 | Visit | | [place] | (Primary Dx); Lumbar | | | | | | radiculopathy; | | | | | | Sacroiliac joint | | | | | | pain | +--------+ + + + + | 01/31/ | Procedure | | | | | 2018 | Pass | | | | +--------+ + + + + from Last 3 Months Family History + + +------+ + | Medical History | Relation | Name | Comments | + + +------+ + | Early | Brother | | MVA | + + +------+ + | No Known Problems | Daughter | | | + + +------+ + | Alcohol abuse | Father | | | + + +------+ + | Cancer | Father | | | + + +------+ + | Heart disease | Father | | | + + +------+ + | Other (see comment) | Father | | blood clots | + + +------+ + | Heart disease | Maternal | | | | | Grandfath | | | | | er | | | + + +------+ + | Heart disease | Maternal | | | | | Grandmoth | | | | | er | | | + + +------+ + | Heart disease | Mother | | | + + +------+ + | Heart surgery | Mother | | | + + +------+ + | High blood pressure | Mother | | | + + +------+ + | Hypertension | Mother | | | + + +------+ + | Migraines | Mother | | | + + +------+ + | No Known Problems | Paternal | | | | | Grandfath | | | | | er | | | + + +------+ + | No Known Problems | Paternal | | | | | Grandmoth | | | | | er | | | + + +------+ + | No Known Problems | Son | | | + + +------+ + | No Known Problems | Son | | | + + +------+ + + +------+ + + | Relation | Name | Status | Comments | + +------+ + + | Brother | | | MVA | | | | (Age | | | | | 38) | | + +------+ + + | Daughter | | Alive | | + +------+ + + | Father | | | Heart disease | | | | (Age | | | | | 68) | | + +------+ + + | Maternal Grandfather | | | | | | | (Age | | | | | 52) | | + +------+ + + | Maternal Grandmother | | | Heart Disease | | | | (Age | | | | | 52) | | + +------+ + + | Mother | | | during Tripple by pass surgery | | | | (Age | | | | | 47) | | + +------+ + + | Paternal Grandfather | | | | + +------+ + + | Paternal Grandmother | | | | + +------+ + + | Son | | Alive | | + +------+ + + | Son | | Alive | | + +------+ + + Social History + + + [...] on file | | + + + Last Filed Vital Signs + + + + | Vital Sign | Reading | Time Taken | + + + + | Blood Pressure | 126/93 | 01/31/2018 1321 PDT | + + + + | Pulse | 64 | 01/31/20181 PDT | + + + + | Temperature | 37 C (98.6 F) | 08/13/2015 1200 PST | + + + + | Respiratory Rate | 16 | 01/31/2018 1321 PDT | + + + + | Oxygen Saturation | 98% | 08/13/2015 0721 PST | + + + + | Inhaled [...] | Body Mass Index | 36.21 | 01/31/20181320 PDT | + + + + Plan of Treatment +--------+---------+ + + + | Date | Type | Specialty | Care Team | Description | +--------+---------+ + + + | 05/17/ | Office | | Moises Barajas | | | 2018 | Visit | | [place] [address] | | | | [address] | | | | | | [place], [place] | | | | | | [address] | | | | | | | | +--------+---------+ + + + + + + + + | Health Maintenance | Due Date | Last Done | Comments | + + + + + | Hepatitis C | | | | | Screening | 7 | | | + + + + + | Vaccine: | | | | | Dtap/Tdap/Td (1 - | 6 | | | | Tdap) | | | | + + + + + | BREAST CANCER | | | | | SCREENING (MAMM Q2 | 7 | | | | YEARS 50-74) | | | | + + + + + | Vaccine: Zoster (1 | | | | | of 2) | 7 | | | + + + + + | Vaccine: Influenza | | | | | (#1) | 8 | | | + + + + + | Colorectal Cancer | | 08/29/2008 | | | Screening | 9 | | | | (Colonoscopy) | | | | + + + + + Implants + +------+--------+ +--------+--------+--------+ | Implanted | Type | Area | Manufacture | Device | Expira | Model | | | | | r | | tion | / | | | | | | Identi | Date | Serial | | | | | | fier | | / Lot | + +------+--------+ +--------+--------+--------+ | Graft Infuse Bone Kit Xxs - | | Cobbler Mckay | CARSONOR | | 05/28/ | [id number] | | [id number]: Qty: 1 on | | ior: | DANEK - DIV | | 2016 | 0 / | | 08/11/2015 by Abdulaziz Ibarra, | | Spine | MEDTRONIC | | | [id number] | | | | Lumbar | - SFDK | | | [id number] | + +------+--------+ +--------+--------+--------+ | Chips Cancellous 15cc - | | Cobbler Mckay | OSTEOTECH - | | 02/10/ | [id number] | | [id number]: Qty: 1 | | ior: | OSTT | | 2020 | | | on 08/11/2015 by Abdulaziz Ibarra | | Spine | | | | /[id number] | | MD Raymundo | | Lumbar | | | | 4-021 | | | | | | | | / | + +------+--------+ +--------+--------+--------+ | Graft Dura Durgn P Mtrx 1x1 | | N/A: | INTEGRA | | 03/29/ | DP-101 | | Ea - [id number]: Qty: | | Spine | NEUROSCIENC | | 2017 | 1 / | | 1 on 08/11/2015 by Fred, | | Lumbar | ES - INNE | | | /[id number] | | Abdulaziz Fonseca MD | | | | | | 75 | + +------+--------+ +--------+--------+--------+ | Tlif Oblique [id number] 12deg | | N/A: | NUVASIVE - | | | [id number] | | - [id number]: Qty: 1 | | Spine | NVSV | | | 2 / / | | on 08/11/2015 by Abdulaziz Ibarra | | Lumbar | | | | | | MD Raymundo | | | | | | | + +------+--------+ +--------+--------+--------+ | Screw Set - | | N/A: | NUVASIVE - | | | [id number] | | [id number]: Qty: 6 on | | Spine | NVSV | | | 0 / / | | 08/11/2015 by Abdulaziz Ibarra, | | Lumbar | | | | | | MD | | | | | | | + +------+--------+ +--------+--------+--------+ | Screw Polyax Precept 6.5x50 - | | N/A: | NUVASIVE - | | | [id number] | | [id number]: Qty: 1 | | Spine | NVSV | | | 0A / / | | on 08/11/2015 by Abdulaziz Ibarra | | Lumbar | | | | | | A, MD | | | | | | | + +------+--------+ +--------+--------+--------+ | Screw Polyax Prcpt 7.5x45mm - | | N/A: | NUVASIVE - | | | [id number] | | [id number]: Qty: 2 | | Spine | NVSV | | | 5A / / | | on 08/11/2015 by Abdulaziz Ibarra | | Lumbar | | | | | | A, MD | | | | | | | + +------+--------+ +--------+--------+--------+ | Quintin Ti Prebent Lordtc 75mm - | | N/A: | NUVASIVE - | | | [id number] | | [id number]: Qty: 1 on | | Spine | NVSV | | | 5 / / | | 08/11/2015 by Abdulaziz Ibarra, | | Lumbar | | | | | | MD | | | | | | | + +------+--------+ +--------+--------+--------+ | Quintin Ti Prebent Lordtc 80mm - | | N/A: | NUVASIVE - | | | [id number] | | [id number]: Qty: 1 on | | Spine | NVSV | | | 0 / / | | 08/11/2015 by Abdulaziz Ibarra, | | Lumbar | | | | | | MD | | | | | | | + +------+--------+ +--------+--------+--------+ Procedures + +--------+ + + + | Procedure Name | Priori | Date/Time | Associated Diagnosis | Comments | | | ty | | | | + +--------+ + + + | PROTIME INR | Routin | 04/19/2018 | Pre-operative | Results for this | | | e | 1121 PDT | laboratory | procedure are in the | | | | | examination | results section. | | | | | Swelling of limb | | | | | | Postlaminectomy | | | | | | syndrome, cervical | | | | | | region | | + +--------+ + + + | PTT | Routin | 04/19/2018 | Pre-operative | Results for this | | | e | 1121 PDT | laboratory | procedure are in the | | | | | examination | results section. | | | | | Swelling of limb | | | | | | Postlaminectomy | | | | | | syndrome, cervical | | | | | | region | | + +--------+ + + + | BASIC METABOLIC | Routin | 04/19/2018 | Pre-operative | Results for this | | PANEL | e | 1121 PDT | laboratory | procedure are in the | | | | | examination | results section. | | | | | Swelling of limb | | | | | | Postlaminectomy | | | | | | syndrome, cervical | | | | | | region | | + +--------+ + + + | CBC WITH | Routin | 04/19/2018 | Pre-operative | Results for this | | DIFFERENTIAL | e | 1117 PDT | laboratory | procedure are in the | | | | | examination | results section. | | | | | Swelling of limb | | | | | | Postlaminectomy | | | | | | syndrome, cervical | | | | | | region | | + +--------+ + + + | ECG 12 LEAD | Routin | 04/19/2018 | | Results for this | | | e | 1047 PDT | | procedure are in the | | | | | | results section. | + +--------+ + + + | [...] | | + +--------+ + + + from Last 3 Months Results PTT (04/19/2018 1121) + +-------+ + + | Component | Value | Ref Range | Performed At | + +-------+ + + | PTT | 29 | 22 - 36 seconds | [facility] | | | | | [facility] | | | | | CENTER - | | | | | LABORATORY | + +-------+ + + + + | Specimen | + + | Blood | + + + + + + + | Performing | Address | City/State/Zipcode | Phone Number | | Organization | | | | + + + + + | [facility] | [address] | [place] | [phone] | | [facility] | | [address] | | | - LABORATORY | | | | + + + + + | [facility] | [address] | [place] | | | [facility] | | [address] | | | - LABORATORY | | | | + + + + + Protime INR (04/19/2018 1121) + + + + + | Component | Value | Ref Range | Performed At | + + + + + | Protime | 11.8 | 11.3 - 13.9 seconds | [facility] | | | | | [facility] | | | | [facility] - | | | | | LABORATORY | + + + + + | INR | 0.88 (L)Comment: Usual | 0.90 - 1.10 | [facility] | | | Oral Anticoagulation | | [facility] | | | Range: 2.0 - | | CENTER - | | | 3.0High Level Oral | | LABORATORY | | | Anticoagulation Range: | | | | | 2.5 - 3.5 | | | + + + + + + + | Specimen | + + | Blood | + + + + + + + | Performing | Address | City/State/Zipcode | Phone Number | | Organization | | | | + + + + + | [facility] | [address] | [place] | [phone] | | [facility] | | [address] | | | - LABORATORY | | | | + + + + + | [facility] | [address] | [place] | | | [facility] | | [address] | | | - LABORATORY | | | | + + + + + Basic Metabolic Panel (04/19/2018 112) + + + + + | Component | Value | Ref Range | Performed At | + + + + + | NA | 138 | 136 - 149 mmol/L | [facility] | | | | | [facility] | | | | [facility] - | | | | | LABORATORY | + + + + + | K | 4.2 | 3.5 - 5.1 mmol/L | [facility] | | | | | [facility] | | | | | [facility] - | | | | | LABORATORY | + + + + + | CL | 100 | 98 - 109 mmol/L | [facility] | | | | | [facility] | | | | | C[facility] - | | | | | LABORATORY | + + + + + | CO2 | 31 | 24 - 31 mmol/L | [facility] | | | | | [facility] | | | | | [facility] - | | | | | LABORATORY | + + + + + | ANION GAP | 7 | 3 - 16 mmol/L | [facility] | | | | | [facility] | | | | | [facility] - | | | | | LABORATORY | + + + + + | GLUCOSE | 102 | 70 - 109 mg/dL | [facility] | | | | | [facility] | | | | | [facility] - | | | | | LABORATORY | + + + + + | BUN | 10 | 7 - 18 mg/dL | [facility]. | | | | | [facility] | | | | | CENTER - | | | | | LABORATORY | + + + + + | Creatinine, | 0.73 | 0.60 - 1.30 mg/dL | [facility]. | | Serum/Plasma | | | [facility] | | | | | CENTER - | | | | | LABORATORY | + + + + + | eGFR if not | >60Comment: GLOMERULAR | >=60 mL/min/1.73m2 | [facility]. | | IRISH | FILTRATION | | [facility] | | | RATE,ESTIMATED mL/min | | CENTER - | | | /1.96o9Ohqh than 60 | | LABORATORY | | | Chronic kidney | | | | | disease,if found over a | | | | | 3-month period.Less than | | | | | 15 Kidney | | | | | failureFor | | | | | Americans,multiply the | | | | | calculated GFR by 1.21. | | | | | | | | + + + + + | CALCIUM | 8.9 | 8.3 - 10.5 mg/dL | [facility] | | | | | [facility] | | | | | C[facility] - | | | | | LABORATORY | + + + + + | BUN/CREA | 13.7 | | [facility] | | | | | [facility] | | | | | [facility] - | | | | | LABORATORY | + + + + + + + | Specimen | + + | Blood | + + + + + + + | Performing | Address | City/State/Zipcode | Phone Number | | Organization | | | | + + + + + | [facility] | [address] | [place] | [phone] | | [facility] | | [address] | | | - LABORATORY | | | | + + + + + | [facility] | [address] | [place] | | | [facility] | | [address] | | | - LABORATORY | | | | + + + + + CBC with Differential (04/19/20181116) + +-------+ + + | Component | Value | Ref Range | Performed At | + +-------+ + + | WBC | 6.2 | 4.0 - 11.0 K/uL | [facility] | | | | | [facility] | | | | | CENTER - | | | | | LABORATORY | + +-------+ + + | RBC | 4.58 | 3.70 - 5.20 M/uL | [facility] | | | | | [facility] | | | | | [facility] - | | | | | LABORATORY | + +-------+ + + | Hgb | 13.9 | 11.5 - 16.0 g/dL | [facility] | | | | | [facility] | | | | | [facility] - | | | | | LABORATORY | + +-------+ + + | Hct | 40.5 | 34.0 - 47.0 % | [facility] | | | | | [facility] | | | | | [facility] - | | | | | LABORATORY | + +-------+ + + | MCV | 88.4 | 83.0 - 101.0 fL | [facility] | | | | | [facility] | | | | | [facility] - | | | | | LABORATORY | + +-------+ + + | MCH | 30.4 | 28.0 - 35.0 pg | [facility] | | | | | [facility] | | | | | [facility] - | | | | | LABORATORY | + +-------+ + + | MCHC | 34.4 | 32.0 - 36.0 g/dL | [facility] | | | | | [facility] | | | | | [facility] - | | | | | LABORATORY | + +-------+ + + | RDW-CV | 12.8 | <15.0 % | [facility] | | | | | [facility] | | | | | C[facility] - | | | | | LABORATORY | + +-------+ + + | Platelet Count | 241 | 140 - 440 K/uL | [facility] | | | | | [facility] | | | | | [facility] - | | | | | LABORATORY | + +-------+ + + | MPV | 7.4 | fL | [facility] | | | | | [facility] | | | | | [facility] - | | | | | LABORATORY | + +-------+ + + | % Neutrophils | 52.4 | 45.0 - 82.0 % | [facility] | | | | | [facility] | | | | | [facility] - | | | | | LABORATORY | + +-------+ + + | % Lymphocytes | 32.1 | 20.0 - 45.0 % | [facility] | | | | | [facility] | | | | | [facility] - | | | | | LABORATORY | + +-------+ + + | % Monocytes | 10.9 | 4.0 - 12.0 % | [facility] | | | | | [facility] | | | | | [facility] - | | | | | LABORATORY | + +-------+ + + | % Eosinophils | 3.6 | 0.0 - 5.0 % | [facility] | | | | | [facility] | | | | | [facility] - | | | | | LABORATORY | + +-------+ + + | % Basophils | 1.0 | 0.0 - 1.0 % | [facility] | | | | | [facility] | | | | | [facility] - | | | | | LABORATORY | + +-------+ + + | Absolute Neutrophils | 3.30 | 1.80 - 8.50 K/uL | [facility] | | | | | [facility] | | | | [facility] - | | | | | LABORATORY | + +-------+ + + | Absolute Lymphocytes | 2.00 | 0.60 - 3.20 K/uL | [facility] | | | | | [facility] | | | | [facility] - | | | | | LABORATORY | + +-------+ + + | Absolute Monocytes | 0.70 | 0.00 - 1.00 K/uL | [facility] | | | | | [facility] | | | | [facility] - | | | | | LABORATORY | + +-------+ + + | Absolute Eosinophils | 0.20 | 0.00 - 0.40 K/uL | [facility] | | | | | [facility] | | | | | [facility] - | | | | | LABORATORY | + +-------+ + + | Absolute Basophils | 0.10 | 0.00 - 0.10 K/uL | [facility] | | | | | [facility] | | | | | CENTER - | | | | | LABORATORY | + +-------+ + + + + | Specimen | + + | Blood | + + + + + + + | Performing | Address | City/State/Zipcode | Phone Number | | Organization | | | | + + + + + | [facility] | [address] | [place] | [phone] | | [facility] | | [address] | | | - LABORATORY | | | | + + + + + | [facility] | [address] | [place] | | | [facility] | | [address] | | | - LABORATORY | | | | + + + + + ECG 12 lead (04/19/2018 1047) + + + + + | Component | Value | Ref Range | Performed At | + + + + + | VENTRICULAR RATE EKG | 55 | BPM | [facility] | + + + + + | ATRIAL RATE | 55 | BPM | [facility] | + + + + + | P-R INTERVAL | 148 | ms | [facility] | + + + + + | QRS DURATION | 80 | ms | [facility] | + + + + + | Q-T INTERVAL | 470 | ms | [facility] | + + + + + | Q-T INTERVAL | 449 | ms | [facility] | | (CORRECTED) | | | | + + + + + | P WAVE AXIS | 46 | degrees | [facility] | + + + + + | QRS AXIS | 63 | degrees | [facility] | + + + + + | T AXIS | 63 | degrees | [facility] | + + + + + | INTERPRETATION TEXT | Sinus | | [facility] | | | bradycardiaOtherwise | | | | | normal ECGNo previous | | | | | ECGs availableConfirmed | | | | | by HAILEY JEFFERSON MD | | | | | ([id number]) on 04/21/2018 | | | | | 6:22:08 AM | | | + + + + + + + + | Narrative | Performed At | + + + | | | + + + + +---------+ + + | Performing | Address | City/State/Zipcode | Phone Number | | Organization | | | | + +---------+ + + | [facility] | | | | + +---------+ + + MRI Lumbar Spine w wo Contrast (04/03/2018 [...] | | | + +---------+ + + from Last 3 Months Insurance +-------+--------+ +------+ + + | Payer | Benefi | Subscriber | Type | Phone | Address | | | t Plan | ID | | | | | | / | | | | | | | Group | | | | | +-------+--------+ +------+ + + | [employer] | [employer] | [id number] | PPO | [phone] [address] [address] | | | [place] | | [address] | [place] [address] | | | [place] | | | | | | | [place] | | | | | +-------+--------+ +------+ + + + +--------+ +--------+ + + | Guarantor Name | Accoun | Relation to | Date | Phone | Billing Address | | | t Type | Patient | of | | | | | | | | | | + +--------+ +--------+ + + | ARIANE CHARLES | Person | Self [birth year] 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
--- OUTSIDE RECORDS SUMMARY | ~2018-04-23 | XMS | Encounter Summary ---
Demographics + + + | Address | [address] | | | [place] [address] | + + + | Home Phone | | + + + | Preferred Language | Unknown | + + + | Marital Status | | + + + | Baptism Affiliation | 1041 | + + + | Race | Unknown | + + + | Ethnic Group | Unknown | + + + Author + + + | Author | [facility] | | | and Fidenc[place] | + + + | Organization | [facility] | | | and [place]idenc[facility]ana [...] [address], [place] | | | | | [address] | | + + + + + | Emma Wheeler | ECON | NA | | | | | [place] | | + + + + + | Chalo Pascal | ECON | NA | | | | | MART ARGUELLO | | + + + + + Care Team Providers + +------+ + | Care Naval Inspector Name | Role | Phone | + +------+ + | Rasheed Anders MD | PCP | | + +------+ + Encounter Details +--------+ + + + + | Date | Type | Department | Care Team | Description | +--------+ + + + + | 01/31/ | Procedure | [facility] | | | | 2018 | Pass | [facility] [address] | | | | | | [place], | | | | | | [place] [id number] | | | | | | [phone] | | | +--------+ + + + [...] | | | | | | [facility] [address] | | | | | | [place] | | | | | | [phone] | | | | | | | | +--------+---------+ + + + as of this encounter Visit Diagnoses Not on filein this encounter"
--- OUTSIDE RECORDS SUMMARY | ~2018-04-23 | XMS | Encounter Summary ---
Demographics + + + | Address | [address] | | | [place] [address] | + + + | Home Phone | | + + + | Preferred Language | Unknown | + + + | Marital Status | | + + + | Bahai Affiliation | 1041 | + + + | Race | Unknown | + + + | Ethnic Group | Unknown | + + + Author + + + | Author | [facility] | | | and Fidencioana | + + + | Organization | [facility] | | | and Fidencioana [...] [place], [place] | | | | | [address] | | + + + + + | Emma Wheeler | ECON | NA | | | | | [place] | | + + + + + | Chalo Pascal | ECON | NA | | | | | [place] | | + + + + + Care Team Providers + +------+ + | Care Face And Fill Packer Name | Role | Phone | + [...] S/P lumbar | Moises | [address] | | | | | fusion | [place] | [place], | | | | | Lumbar | [address] | [place] | | | | | radiculopath | [address] | [address] | | | | | y | [address] | Phone: | | | | | Sacroiliac | [place], | [phone] | | | | | joint pain | [place] [address] | Fax: | | | | | Procedures | Phone: | [phone] | | | | | MRI Lumbar | [phone] | | | | | | Spine w wo | Fax: | | | | | | Contrast | [phone] | | | | | | 02/07 [...] + + | 01/31/ | Office | [facility] | Moises Barajas | S/P lumbar fusion | | 2017 | Visit | NEUROSURGERY [address] | [place] [address] | (Primary Dx); Lumbar | | | | [address] | [address] | radiculopathy; | | | | [place], [place] | [place] | Sacroiliac joint | | | | [address] | [address] | pain | | | | [phone] | | | +--------+---------+ + + + [...] encounter Instructions Patient Instructions - Pratibha Leos, Bridge Builder - 01/31/[address]ure to see you today. Here is what we discussed. 1. Repeat the lumbar MRI . Please call when you have completed the MRI so that we can revi ew the results and contact you 2. See about getting a bone growth stimulator in this encounter Progress Notes Moises Barajas PA-C - 01/31/2018 3230 PDTFormatting of this note may be different fr om the original. Moises Barajas PA-C [address] [facility], [address] [place] [address] FAX: NEUROSURGERY FOLLOW-UP CHIEF COMPLAINT: [...] patient is working with clubbing pain management [place]. She is very pleased with her approach [...] this documentation , as scribed by Pratibha eLos MA in my presence, and it is [...] | | | | | | [address] [facility] | | | | | | [place], [place] | | | | | | [address] | | | | | | | [...]
--- OUTSIDE RECORDS SUMMARY | ~2018-04-23 | XMS | Encounter Summary ---
Demographics + + + | Address | [address] | | | [place] [address] | + + + | Home Phone | | + + + | Preferred Language | Unknown | + + + | Marital Status | | + + + | Mandaeism Affiliation | 1041 | + + + | Race | Unknown | + + + | Ethnic Group | Unknown | + + + Author + + + | Author | [facility] | | | and Fidencioana | + + + | Organization | [facility] | | | and Fidencioana | [...] [address], [place] | | | | | [address] | | + + + + + | Emma Wheeler | ECON | NA | | | | | [place] | | + + + + + | Chalo Pascal | ECON | NA | | | | | [place] | | + + + + + Care Team Providers + +------+ + | Care Printer Apprentice Name | Role | Phone | + +------+ + | Rasheed Anders MD | PCP | | + +------+ + Encounter Details +--------+ + + + + | Date | Type | Department | Care Team | Description | +--------+ + + + + | 04/19/ | Transcribed | [facility] | Regis Tomlin | Pre-operative | | 2018 | Orders | MED CTR | MD [address] | laboratory | | | | ELECTRODIAGNOSTICS | [facility] | examination (Primary | | | | [address] [place] | [place] [address] | Dx); Swelling of | | | | [place] [address] | [phone] | limb; Chronic pain | | | | [phone] | | syndrome; | | | | [...] [place] | | | | | | [address] | | | | | | | [...]
--- OUTSIDE RECORDS SUMMARY | ~2018-04-23 | XMS | Encounter Summary ---
Demographics + + + | Address | [address] | | | [place] [address] | + + + | Home Phone | | + + + | Preferred Language | Unknown | + + + | Marital Status | | + + + | Judaism Affiliation | 1041 | + + + | Race | Unknown | + + + | Ethnic Group | Unknown | + + + Author + + + | Author | and [facility] | | | and Fidencioana | + + + | Organization | and [facility] | | | and Fidencioana | [...] [place], [place] | | | | | [address] | | + + + + + | Emma Wheeler | ECON | NA | | | | | [place] | | + + + + + | Chalo Pascal | ECON | NA | | | | | [place] | | + + + + + Care Team Providers + +------+ + | Care Parcel Post Delivery Name | Role | Phone | + +------+ + | Rasheed Anders MD | PCP | | + +------+ + Encounter Details +--------+ + + + + | Date | Type | Department | Care Team | Description | +--------+ + + + + | 04/19/ | Hospital | [facility] | Regis Tomlin | Pre-operative | | 2018 | Encounter | MED CTR | MD [address] | laboratory | | | | ELECTRODIAGNOSTICS | [facility] | examination; | | | | [address] [place] | [place] [address] | Swelling of limb; | | | | [place] [address] | [phone] | Chronic pain | | | | [phone] | | syndrome; | | | | [...] W | | | | | | [address] [facility] | | | | | | [place] | | | | | | [address] | | | | | | | [...] | | | | examination | until 04/19/2018 | | | | Swelling of limb | | | | | Chronic pain | | | | | syndrome | | | | | Postlaminectomy | | | | | syndrome, cervical | | | | | region | | + +--------+ + + as of this encounter Procedures [...] + + + in this encounter Results ECG 12 lead (04/19/2018 1047) + + + + + | Component | Value | Ref Range | Performed At | + + + + + | VENTRICULAR RATE EKG | 55 | BPM | [facility] | + + + + + | ATRIAL RATE | 55 | BPM | [facility] | + + + + + | P-R INTERVAL | 148 | ms | [facility] | + [...] JEFFERSON MD | | | | | ([id number]) on 04/21/2018 | | | | | [...] | + + | Pre-operative laboratory examination | + + | Pre-procedural laboratory examination | + + | Swelling of limb | + + | Chronic pain syndrome | + + | Postlaminectomy syndrome, cervical region | + +"
--- OUTSIDE RECORDS SUMMARY | ~2018-04-23 | XMS | Encounter Summary ---
Demographics + + + | Address | [address] | | | [place] [address] | + + + | Home Phone | | + + + | Preferred Language | Unknown | + + + | Marital Status | | + + + | Tenriism Affiliation | 1041 | + + + | Race | Unknown | + + + | Ethnic Group | Unknown | + + + Author + + + | Author | [facility] | | | and Fidencioana | + + + | Organization | [facility] | | | and Fidencioana [...] [address], [place] | | | | | [address] | | + + + + + | Emma Wheeler | ECON | NA | | | | | [place] | | + + + + + | Chalo Pascal | ECON | NA | | | | | [place] | | + + + + + Care Team Providers + +------+ + | Care Gun Fertilizer Name | Role | Phone | + +------+ + | Rasheed Anders MD | PCP | | + +------+ + Encounter Details +--------+ + + + + | Date | Type | Department | Care Team | Description | +--------+ + + + + | 04/19/ | Hospital | [facility] | Regis Tomlin | Pre-operative | | 2018 | Encounter | MED CTR | MD [address] | laboratory | | | | ELECTRODIAGNOSTICS | [facility] | examination; | | | | [address] [place] | [place] [address] | Swelling of limb; | | | | [place] [address] | [phone] | Chronic pain | | | | [phone] | | syndrome; | | | | [...] | | | | [address] [facility] [address] | | | | | | [place] | | | | | | [address] | | | | | | | [...] JEFFERSON MD | | | | | ([id number]) on 04/21/2018 | | | | | [...]
--- OUTSIDE RECORDS SUMMARY | ~2018-04-23 | XMS | Clinical Summary ---
Demographics + + + | Address | [address] | | | [place] [address] | + + + | Home Phone | | + + + | Preferred Language | Unknown | + + + | Marital Status | | + + + | Denominational Affiliation | Unknown | + + + | Race | White | + + + | Ethnic Group | Not or | + + + Author + + + | Author | [facility] | + + + | Organization | [facility] | + + + | Address | Unknown | + + + | Phone | Unavailable | + + + Support + + + + + | Name | Relationship | Address | Phone | + + + + + | NICOLE DINH | ECON | [address] | | | | | [place] | | | | | [address] | | + + + + + Care Team Providers + +------+ + | Care Drug Room Operator Name | Role | Phone | + +------+ + | Rasheed Anders MD | PP | | + +------+ + Source Comments TONY is fully live on both [facility] and [facility] Allergies + + + + + + | Active Allergy | Reactions | Severity | Noted | Comments | | | | | Date | | + + + + + + | Meperidine Hcl | | | 01/24/19 | | | | | | 96 | | + + + + + + Current Medications + + +-------+---------+------+------+-------+ | Prescription | Sig. | Disp. | Refills | Star | End | Statu | | | | | | t | Date | s | | | | | | Date | | | + + +-------+---------+------+------+-------+ | atenolol 100 mg | Take by mouth. | | | | | Activ | | oral tablet | | | | | | e | + + +-------+---------+------+------+-------+ | estradiol 1 mg | Take by mouth. | | | | | Activ | | oral tablet | | | | | | e | + + +-------+---------+------+------+-------+ | pregabalin 150 mg | Take by mouth. | | | | | Activ | | oral capsule | | | | | | e | + + +-------+---------+------+------+-------+ | oxyCODONE | Take by mouth. | | | | | Activ | | (immediate release) | | | | | | e | | 10 mg oral tablet | | | | | | | + + +-------+---------+------+------+-------+ | predniSONE 10 mg | | | 0 | 06/2 | | Activ | | oral tablet | | | | 6/20 | | e | | | | | | 17 | | | + + +-------+---------+------+------+-------+ | mometasone 0.1 % | RAJESH EXT AA HS | | 0 | 06/1 | | Activ | | topical ointment | | | | 5/20 | | e | | | | | | 17 | | | + + +-------+---------+------+------+-------+ | lisinopril 5 mg | TK 1 T PO QD | | 12 | 06/1 | | Activ | | oral tablet | | | | 3/20 | | e | | | | | | 17 | | | + + +-------+---------+------+------+-------+ Active Problems + + + | Problem | Noted Date | + + + | Hypertension | 03/07/2017 | + + + | Spinal stenosis, lumbar | 03/07/2017 | + + + | Displacement of lumbar intervertebral disc without myelopathy | 03/07/2017 | + + + | DDD (degenerative disc disease), lumbar | 03/07/2017 | + + + | Alopecia areata | 03/07/2017 | + + + | Neuropathic pain | 12/10/2015 | + + + | S/P lumbar fusion | 06/06/2015 | + + + | Degenerative disc disease, lumbar | 03/19/2014 | + + + | Foraminal stenosis of lumbar region | 03/19/2014 | + + + | Lumbar radiculopathy | 03/19/2014 | + + + Social History + +-------+ +--------+------+ | Tobacco Use | Types | Packs/Day | Years | Date | | | | | Used | | + +-------+ +--------+------+ | Never Smoker | | | | | + +-------+ +--------+------+ + +---+---+---+ | Smokeless Tobacco: | | | | | Never Used | | | | + +---+---+---+ + + + | Sex Assigned at | Date Recorded | | | | + + + | Not on file | | + + + Last Filed Vital Signs + +---------+ + | Vital Sign | Reading | Time Taken | + +---------+ + | Blood Pressure | 150/89 | 03/07/2017 10:40 AM PDT | + +---------+ + | Pulse | 92 | 03/07/2017 10:40 AM PDT | + +---------+ + | Temperature | - | - | + +---------+ + | Respiratory Rate | 16 | 03/07/2017 10:40 AM PDT | + +---------+ + | Oxygen Saturation | - | - | + +---------+ + | Inhaled Oxygen | - | - | | Concentration | | | + +---------+ + | Weight | - | - | + +---------+ + | Height | - | - | + +---------+ + | Body Mass Index | - | - | + +---------+ + Plan of Treatment + + + + + | Health Maintenance | Due Date | Last Done | Comments | + + + + + | INFLUENZA VACCINE | | | | | (FLU SHOT) | 8 | | | + + + + + Results Not on filefrom Last 3 Months Insurance +-------+--------+ +------+ + + | Payer | Benefi | Subscriber | Type | Phone | Address | | | t Plan | ID | | | | | | / | | | | | | | Group | | | | | +-------+--------+ +------+ + + | MODA | MODA | [id number] | PPO | +- | [address] [address] | | | [place] | | | [address] | [place] [address] | | | [place] | | | | | +-------+--------+ +------+ + + | MODA | MODA | [id number] | PPO | +- | [address] [address] | | | [place] | | | [address] | [place] [address] | | | [place] | | | | | +-------+--------+ +------+ + + + +--------+ +--------+ + + | Guarantor Name | Accoun | Relation to | Date | Phone | Billing Address | | | t Type | Patient | of | | | | | | | | | | + +--------+ +--------+ + + | ARIANE DINH | Person | Self [birth year] | Home: | [address] | | | al/Fam | | 7 | +1- | [place] [address] | | | [place]ina | | | [address] | | + +--------+ +--------+ + + | ARIANE DINH | Person | Self | [birth year] | Home: | [address] | | | al/Fam | | 7 | +- | [place] [address] | | | clementina | | | [address] | | + +--------+ +--------+ + +"
--- OUTSIDE RECORDS SUMMARY | ~2018-04-23 | XMS | Encounter Summary ---
Demographics + + + | Address | [address] | | | [place] [address] | + + + | Home Phone | | + + + | Preferred Language | Unknown | + + + | Marital Status | | + + + | Latter-Day Affiliation | 1041 | + + + | Race | Unknown | + + + | Ethnic Group | Unknown | + + + Author + + + | Author | [facility] | | | and Fidencioana | + + + | Organization | [facility] | | | and Fidencioana [...] [place], [place] | | | | | [address] | | + + + + + | Emma Wheeler | ECON | NA | | | | | [place] | | + + + + + | Chalo Pascal | ECON | NA | | | | | [place] | | + + + + + Care Team Providers + +------+ + | Care Facilities Engineering Manager Name | Role | Phone | + +------+ + | Rasheed Anders MD | PCP | | + +------+ + Reason for Visit + + + | Reason | Comments | + + + | Imaging Only | Lumbar MRI | + + + | Results, Imaging | | + + + | Follow-up, Office | | | Visit | | + + + | Neurosurgery | | | Appointment | | + + + Encounter Details +--------+ + + + + | Date | Type | Department | Care Team | Description | +--------+ + + + + | 04/04/ | Telephone | [facility] | Abdulaziz Ibarra MD | Imaging Only (Lumbar | | 2018 | | NEUROSURGERY [address] | [address] [place] | MRI); Results, | | | | [address] | [address] [place] | Imaging; Follow-up, | | | | [place] | [address] | Office Visit; | | | | [address] | | Neurosurgery | | | | [phone] | | Appointment | +--------+ + + + + Social [...] | | | | | [facility] [address] | | | | | | [place] | | | | | | [address] | | | | | | | | +--------+---------+ + + + as of this encounter Visit Diagnoses Not on filein this encounter"
--- OUTSIDE RECORDS SUMMARY | ~2018-04-23 | XMS | Encounter Summary ---
Demographics + + + | Address | [address] | | | [place] [address] | + + + | Home Phone | | + + + | Preferred Language | Unknown | + + + | Marital Status | | + + + | Mu-Ism Affiliation | 1041 | + + + | Race | Unknown | + + + | Ethnic Group | Unknown | + + + Author + + + | Author | [facility] | | | and Fidencioana | + + + | Organization | [facility] | | | and [...] [address], [place] | | | | | [address] | | + + + + + | Emma Wheeler | ECON | NA | | | | | [place] | | + + + + + | Chalo Pascal | ECON | NA | | | | | [place] | | + + + + + Care Team Providers + +------+ + | Care Wax Pumper Name | Role | Phone | + [...] S/P lumbar | Moises | [address] | | | | | fusion | YUE Man | [place], | | | | | Lumbar | [address] | [place] | | | | | radiculopath | [address] | [address] | | | | | y | [address] | Phone: | | | | | Sacroiliac | [place], | [phone] | | | | | joint pain | [place] [address] | Fax: | | | | | Procedures | Phone: | [phone] | | | | | MRI Lumbar | [phone] | | | | | | Spine w wo | Fax: | | | | | | Contrast | [phone] | | | | | | 02/07 [...] S/P lumbar | Moises | [address] | | | | | fusion | YUE Man | [place], | | | | | Lumbar | [address] | [place] | | | | | radiculopath | [address] | [address] | | | | | y | [address] | Phone: | | | | | Sacroiliac | [place], | [phone] | | | | | joint pain | [place] [address] | Fax: | | | | | Procedures | Phone: | [phone] | | | | | MRI Lumbar | [phone] | | | | | | Spine w wo | Fax: | | | | | | Contrast | [phone] | | | | | | 02/07 [...] S/P lumbar | Moises | [address] | | | | | fusion | Y[place] Man | [place], | | | | | Lumbar | [address] | [place] | | | | | radiculopath | [address] | [address] | | | | | y | [address] | Phone: | | | | | Sacroiliac | [place], | [phone] | | | | | joint pain | [place] [address] | Fax: | | | | | Procedures | Phone: | [phone] | | | | | MRI Lumbar | [phone] | | | | | | Spine w wo | Fax: | | | | | | Contrast | [phone] | | | | | | 02/07 [...] + + | 04/03/ | Hospital | [facility] | [facility] | S/P lumbar fusion; | | 2017 | Encounter | MED CTR MRI [address] | [place] [address] | Lumbar | | | | [address] [place], | [address] | radiculopathy; | | | | [place] [address] | [place], [place] | Sacroiliac joint | | | | [phone] | [address] | pain | | | [...] | | | | | [place] | | | | | | [address] | | | | | | | [...]
--- OUTSIDE RECORDS SUMMARY | ~2018-04-23 | XMS | Encounter Summary ---
Demographics + + + | Address | [address] | | | [place] [address] | + + + | Home Phone | | + + + | Preferred Language | Unknown | + + + | Marital Status | | + + + | Adventist Affiliation | 1041 | + + + | Race | Unknown | + + + | Ethnic Group | Unknown | + + + Author + + + | Author | [facility] | | | and Fidencioana | + + + | Organization | [facility] | | | and Fidencioana [...] [place], [place] | | | | | [address] | | + + + + + | Emma Wheeler | ECON | NA | | | | | [place] | | + + + + + | Chalo Pascal | ECON | NA | | | | | [place] | | + + + + + Care Team Providers + +------+ + | Care Business Administration Instructor Name | Role | Phone | + +------+ + | Rasheed Anders MD | PCP | | + +------+ + Encounter Details +--------+ + + + + | Date | Type | Department | Care Team | Description | +--------+ + + + + | 04/20/ | Transcribed | [facility] | Provider Not, In | | | 2018 | Orders | MED CTR | [facility] | | | | | ELECTRODIAGNOSTICS | Health and Service | | | | | [address] | | | | | | [place] [address] | | | | | | [phone] | | | +--------+ + + + [...] | | | | | | [place] [address] | | | | | | [place] | | | | | | [address] | | | | | | | | +--------+---------+ + + + as of this encounter Visit Diagnoses Not on filein this encounter"
--- OUTSIDE RECORDS SUMMARY | ~2018-04-23 | XMS | Clinical Summary ---
Demographics + + + | Address | [address] | | | [place] [address] | + + + | Home Phone | | + + + | Preferred Language | Unknown | + + + | Marital Status | | + + + | Lutheran Affiliation | Unknown | + + + | Race | Unknown | + + + | Ethnic Group | Unknown | + + + Author + + + | Author | [facility] | + + + | Organization | [facility] | + + + | Address | Unknown | + + + | Phone | Unavailable | + + + Support + + + + + | Name | Relationship | Address | Phone | + + + + + | [place] | ECON | [address] | | | | | [place] | | | | | [address] | | + + + + + Care Team Providers + +------+ + | Care Clinical Evaluator Name | Role | Phone | + +------+ + | Rasheed Anders MD | PP | Unavailable | + +------+ + Allergies Not on File Current Medications Not on file Active Problems Not on file Social History + +-------+ +--------+------+ | Tobacco Use | Types | Packs/Day | Years | Date | | | | | Used | | + +-------+ +--------+------+ | Never Assessed | | | | | + +-------+ +--------+------+ + + + | Sex Assigned at | Date Recorded | | | | + + + | Not on file | | + + + Plan of Treatment Not on file Results Not on filefrom Last 3 Months Insurance + +--------+ +------+-------+---------+ | Payer | Benefi | Subscriber | Type | Phone | Address | | | t Plan | ID | | | | | | / | | | | | | | Group | | | | | + +--------+ +------+-------+---------+ | [employer] | FC-NET | [id number] | | | | | | WORK | | | | | + +--------+ +------+-------+---------+ | [employer] | ODS | [id number] | | | | | | HEALTH | | | | | | | PLAN | | | | | + +--------+ +------+-------+---------+ + +--------+ +--------+ + + | Guarantor Name | Accoun | Relation to | Date | Phone | Billing Address | | | t Type | Patient | of | | | | | | | | | | + +--------+ +--------+ + + | AYDEE VASQUEZ | Person | Self | [birth year] | Home: | [address] | | [address] | | 1955 | [phone] | [place] [address] | | | [place] | | | [address] | | + +--------+ +--------+ + +"
--- OUTSIDE RECORDS SUMMARY | ~2018-04-23 | XMS | Encounter Summary ---
Demographics + + + | Address | [address] | | | [place] [address] | + + + | Home Phone | | + + + | Preferred Language | Unknown | + + + | Marital Status | | + + + | Methodist Affiliation | 1041 | + + + | Race | Unknown | + + + | Ethnic Group | Unknown | + + + Author + + + | Author | [facility] | | | and Fidencioana | + + + | Organization | [facility] | | | and [...] [place], [place] | | | | | [address] | | + + + + + | Emma Wheeler | ECON | NA | | | | | [place] | | + + + + + | Chalo Pascal | ECON | NA | | | | | [place] | | + + + + + Care Team Providers + +------+ + | Care Road Manager Name | Role | Phone | [...] | | | | [place] | [address] | Office Visit; | | | | [address] | | Neurosurgery | | | | [phone] | | Appointment | +--------+ + + [...] | | | | | [facility] | | | | | | [place] | | | | | | [address] | | | | | | | | +--------+---------+ + + + as of this encounter Visit Diagnoses Not on filein this encounter"
--- OUTSIDE RECORDS SUMMARY | ~2018-04-23 | XMS | Encounter Summary ---
Demographics + + + | Address | [address] | | | [place] [address] | + + + | Home Phone | | + + + | Preferred Language | Unknown | + + + | Marital Status | | + + + | Sikhism Affiliation | 1041 | + + + | Race | Unknown | + + + | Ethnic Group | Unknown | + + + Author + + + | Author | [facility] | | | and Fidencioana | + + + | Organization | [facility] | | | and F[facility]enc[facility]ana | [...] [place], [place] | | | | | [address] | | + + + + + | Emma Wheeler | ECON | NA | | | | | [place] | | + + + + + | Chalo Pascal | ECON | NA | | | | | [place] | | + + + + + Care Team Providers + +------+ + | Care Child Therapist Name | Role | Phone | + +------+ + | Alexander Costa MD | PCP | | + +------+ + Reason for Visit + + + | Reason | Comments | + + + | Referral (Follow up) | | + + + Encounter Details +--------+ + + + + | Date | Type | Department | Care Team | Description | +--------+ + + + + | 02/02/ | Telephone | [facility] | Abdulaziz Ibarra MD | Referral (Follow up) | | 2018 | | NEUROSURGERY [address] | [address] [facility] | | | | | [address] [facility] [address] | [address] [place] | | | | | [place] | [address] | | | | | [address] | | | | | | [phone] | | | +--------+ + + + [...] | | | | | [address] [facility] [address] | | | | | | [place] | | | | | | [address] | | | | | | | | +--------+---------+ + + + as of this encounter Visit Diagnoses Not on filein this encounter"
--- OUTSIDE RECORDS SUMMARY | ~2018-04-23 | XMS | Encounter Summary ---
Demographics + + + | Address | [address] | | | [place] [address] | + + + | Home Phone | | + + + | Preferred Language | Unknown | + + + | Marital Status | | + + + | Faith Affiliation | 1041 | + + + | Race | Unknown | + + + | Ethnic Group | Unknown | + + + Author + + + | Author | [facility] | | | and Fidencioana | + + + | Organization | [facility] | | | and Fidencioana [...] [address], [place] | | | | | [address] | | + + + + + | Emma Wheeler | ECON | NA | | | | | [place] | | + + + + + | Chalo Pascal | ECON | NA | | | | | [place] | | + + + + + Care Team Providers + +------+ + | Care Trim And Burr Operator Name | Role | Phone | [...] + + | 02/02/ | Telephone | [facility] | Abdulaziz Ibarra MD | Referral (Follow up) | | 2018 | | NEUROSURGERY [address] | [address] [facility] | | | | | [facility] [address] | [address] [place] [address] | | | | | [place] | [address] | | | | | [address] | | | | | | [phone] | | | +--------+ + + + [...] | | | | | [address] [facility] [address] | | | | | | [place] | | | | | | [address] | | | | | | | | +--------+---------+ + + + as of this encounter Visit Diagnoses Not on filein this encounter"
--- OUTSIDE RECORDS SUMMARY | ~2018-04-23 | XMS | Clinical Summary ---
Demographics + + + | Address | [address] | | | [place] [address] | + + + | Home Phone | | + + + | Preferred Language | Unknown | + + + | Marital Status | | + + + | Uatsdin Affiliation | 1041 | + + + | Race | Unknown | + + + | Ethnic Group | Unknown | + + + Author + + + | Author | [facility] | | | and Fidencioana | + + + | Organization | [facility] | | | and Fidencioana [...] [place], [place] | | | | | [address] | | + + + + + | Emma Wheeler | ECON | NA | | | | | [place] | | + + + + + | Chalo Pascal | ECON | NA | | | | | [place] | | + + + + + Care Team Providers + +------+ + | Care Drivers' Cash Clerk Name | Role | Phone | + [...] 50 | | | | | | [place], [place] | | | | | | [address] | | | | | | | [...] Infuse Bone Kit Xxs - | | Management Information Systems Director | CARSONOR | | 05/28/ | [id number] | | [id number]: Qty: 1 on | | ior: | DANEK - DIV | | 2016 | 0 / | | 08/11/2015 by Abdulaziz Ibarra, | | Spine | [employer] | | | /[id number] | | | | Lumbar | - SFDK | | | [id number] | + +------+--------+ +--------+--------+--------+ | Chips Cancellous 15cc - | | Management Information Systems Director | [employer] - | | 02/10/ | [id number] | | [id number]: Qty: 1 | | ior: | OSTT | | 2020 | | | on 08/11/2015 by Abdulaziz Ibarra | | Spine | | | | /[id number] | | MD Raymundo | | Lumbar | | | | 4-021 | | | | | | | | / | + +------+--------+ +--------+--------+--------+ | Graft Dura Durgn P Mtrx 1x1 | | N/A: | [employer] | | 03/29/ | DP-101 | | Ea - [id number]: Qty: | | Spine | NEUROSCIENC | | 2017 | 1 / | | 1 on 08/11/2015 by Fred, | | Lumbar | ES - INNE | | | /[id number] | | Abdulaziz Fonseca MD | | | | | | 75 | + +------+--------+ +--------+--------+--------+ | Tlif Oblique [id number] 12deg | | N/A: | NUVASIVE - | | | [id number] | | - [id number]: Qty: 1 | | Spine | NVSV | | | 2 / / | | on 08/11/2015 by Abdulaziz Ibarra | | Lumbar | | | | | | MD Raymundo | | | | | | | + +------+--------+ +--------+--------+--------+ | Screw Set - | | N/A: | NUVASIVE - | | | [id number] | | [id number]: Qty: 6 on | | Spine | NVSV | | | 0 / / | | 08/11/2015 by Abdulaziz Ibarra, | | Lumbar | | | | | | MD | | | | | | | + +------+--------+ +--------+--------+--------+ | Screw Polyax Precept 6.5x50 - | | N/A: | NUVASIVE - | | | [id number] | | [id number]: Qty: 1 | | Spine | NVSV | | | 0A / / | | on 08/11/2015 by Abdulaziz Ibarra | | Lumbar | | | | | | A, MD | | | | | | | + +------+--------+ +--------+--------+--------+ | Screw Polyax Prcpt 7.5x45mm - | | N/A: | NUVASIVE - | | | [id number] | | [id number]: Qty: 2 | | Spine | NVSV | | | 5A / / | | on 08/11/2015 by Abdulaziz Ibarra | | Lumbar | | | | | | A, MD | | | | | | | + +------+--------+ +--------+--------+--------+ | Quintin Ti Prebent Lordtc 75mm - | | N/A: | NUVASIVE - | | | [id number] | | [id number]: Qty: 1 on | | Spine | NVSV | | | 5 / / | | 08/11/2015 by Abdulaziz Ibarra, | | Lumbar | | | | | | MD | | | | | | | + +------+--------+ +--------+--------+--------+ | Quintin Ti Prebent Lordtc 80mm - | | N/A: | NUVASIVE - | | | [id number] | | [id number]: Qty: 1 on | | Spine | [...] [facility] | | | [facility] | | | | | [facility] - | | | | | LABORATORY | + +-------+ + + + + | Specimen | + + | Blood | + + + + + + + | Performing | Address | City/State/Zipcode | Phone Number | | Organization | | | | + + + + + | [facility] | [address] | [place] | [phone] | | [facility] | | [address] | | | - LABORATORY | | | | + + + + + | [facility] | [address] | [place] | | | [facility] | | [address] | | | - LABORATORY | | [...] + | [facility] | [address] | [place] | [phone] | | [facility] | | [address] | | | - LABORATORY | | | | + + + + + | [facility] | [address] | [place] | | | [facility] | | [address] | | | - LABORATORY | | [...] 10 | 7 - 18 mg/dL | [facility]. | | | | | [facility] | | | | | CENTER - | | | | | LABORATORY | + + + + + | Creatinine, | 0.73 | 0.60 - 1.30 mg/dL | [facility]. | | Serum/Plasma | | | [facility] | | | | | CENTER - | | | | | LABORATORY | + + + + + | eGFR if not | >60Comment: GLOMERULAR | >=60 mL/min/1.73m2 | [facility]. | | MALIAN | FILTRATION | | [facility] | | | RATE,ESTIMATED mL/min | | CENTER - | | | /1.93o1Onaf than 60 | | LABORATORY | | [...] [address] | [place] | [phone] | | [facility] | | [address] | | | - LABORATORY | | | | + + + + + | [facility] | [address] | [place] | | | [facility] | | [address] | | | - LABORATORY | | | | + + + + + CBC with Differential (04/19/20181116) + +-------+ + + | Component | Value | Ref Range | Performed At | + +-------+ + + | WBC | 6.2 | 4.0 - 11.0 K/uL | [facility] | | | | | [facility] | | | | | CENTER - [...] [facility] | | | | | [facility] | | | | | CENTER [...] [facility] | | | | | [facility] | | | | | CENTER - [...] [address] | [place] | [phone] | | [facility] | | [address] | | | - LABORATORY | | | | + + + + + | [facility] | [address] | [place] | | | [facility] | | [address] | | | - LABORATORY | | [...] JEFFERSON MD | | | | | ([id number]) on 04/21/2018 | | | | | [...] + + | MODA | MODA | [id number] | PPO | [phone] [address] [address] | | | [place] | | | [address] | [place] [address] | | | [place] | | | [...] | 1954 | +1- | [place] [address] | | | [place] | | | [address] Home: | | | | | | | | | | | | | | +1- | | | | | | | 2983 | | + +--------+ +--------+ + +
--- OUTSIDE RECORDS SUMMARY | ~2018-04-23 | XMS | Encounter Summary ---
Demographics + + + | Address | [address] | | | [place] [address] | + + + | Home Phone | | + + + | Preferred Language | Unknown | + + + | Marital Status | | + + + | Muslim Affiliation | 1041 | + + + | Race | Unknown | + + + | Ethnic Group | Unknown | + + + Author + + + | Author | [facility] | | | and Fidencioana | + + + | Organization | [facility] | | | and Fidencioana [...] [address], [place] | | | | | [address] | | + + + + + | Emma Wheeler | ECON | NA | | | | | [place] | | + + + + + | Chalo Pascal | ECON | NA | | | | | [place] | | + + + + + Care Team Providers + +------+ + | Care Malted Milk Masher Name | Role | Phone | + [...] [place], | | | | | | [place] [address] | | | | | | [phone] | | | +--------+ + + + [...] | | | | | | [address] [facility] [address] | | | | | | [place] | | | | | | [address] | | | | | | | | +--------+---------+ + + + as of this encounter Visit Diagnoses Not on filein this encounter"
--- OUTSIDE RECORDS SUMMARY | ~2018-04-23 | XMS | Clinical Summary ---
Demographics + + + | Address | [address] | | | [place] [address] | + + + | Home Phone | | + + + | Preferred Language | Unknown | + + + | Marital Status | | + + + | Jehovah'S Witness Affiliation | Unknown | + + + [...] [address] | | | | | [address] | | + + + + + Care Team Providers + +------+ + | Care Sharepoint Trainer Name | Role | Phone | + +------+ + | Rasheed Anders MD | PP | | + +------+ + Source Comments TONY is fully live on both [facility] and [facility] In[facility] Allergies + + + + + + [...] | PPO | +- | [address] [address] | | | [place] | | | [address] | [place] [address] | | | [place] | | | | | +-------+--------+ +------+ + + | MODA | MODA | [phone] | PPO | +- | [address] [address] | | | [place] | | | [address] | [place] [address] | | | [place] | | | [...] | 7 | +1- | [place] [address] | | | [place] | | | [address]83 | | + +--------+ +--------+ + + | ARIANE DINH | Person | Self | [birth year] | Home: | [address] | | | al/Fam | | 7 | +- | [place] [address] | | | [place]ina | | | [address] | | + +--------+ +--------+ + +"
--- OUTSIDE RECORDS SUMMARY | ~2018-04-23 | XMS | Encounter Summary ---
Demographics + + + | Address | [address] | | | [place] [address] | + + + | Home Phone | | + + + | Preferred Language | Unknown | + + + | Marital Status | | + + + | Latter Day Affiliation | 1041 | + + + | Race | Unknown | + + + | Ethnic Group | Unknown | + + + Author + + + | Author | [facility] | | | and Fidencioana | + + + | Organization | [facility] | | | and Fidencioana [...] [address], [place] | | | | | [address] | | + + + + + | Emma Wheeler | ECON | NA | | | | | [place] | | + + + + + | Chalo Pascal | ECON | NA | | | | | [place] | | + + + + + Care Team Providers + +------+ + | Care Home Care Administrator Name | Role | Phone | + +------+ + | Rasheed Anders MD | PCP | | + +------+ + Encounter Details +--------+ + + + + | Date | Type | Department | Care Team | Description | +--------+ + + + + | 04/20/ | Transcribed | [facility] | Provider Not, In | | | 2018 | Orders | MED CTR | [facility] | | | | | [facility] | [facility] | | | | | [address] | | | | | | [place] [address] | | | | | | [phone] | | | +--------+ + + + [...] | | | | | | [place] [address] | | | | | | [place] | | | | | | [address] | | | | | | | | +--------+---------+ + + + as of this encounter Visit Diagnoses Not on filein this encounter"
--- OUTSIDE RECORDS SUMMARY | ~2018-04-23 | XMS | Clinical Summary ---
Demographics + + + | Address | [address] | | | [place] [address] | + + + | Home Phone | | + + + | Preferred Language | Unknown | + + + | Marital Status | | + + + | Moravian Affiliation | Unknown | + + + | Race | Unknown | + + + | Ethnic Group | Unknown | + + + Author + + + | Author | [facility] | + + + | Organization | [facility] | + + + | Address | Unknown | + + + | Phone | Unavailable | + + + Support + + + + + | Name | Relationship | Address | Phone | + + + + + | [place] | ECON | [address] | | | | | [place] | | | | | [address] | | + + + + + Care Team Providers + +------+ + | Care Neurological Surgery Teacher Name | Role | Phone | + [...] +------+-------+---------+ | [employer] | FC-NET | [id number] | | | | | | WORK | | | | | + +--------+ +------+-------+---------+ | [employer] | [employer]DS | [id number] | | | | | | HEALTH [...] | 1955 | [phone] | [place] [address] | | | [place] | | | [address] | | + +--------+ +--------+ + +"
[2018-04-23] MEDS ORDERED: CYMBALTA60 MG PO (22:27)
[2018-04-23] MEDS ORDERED: TRAZODONE HCL100 MG PO (22:27)
[2018-04-23] MEDS ORDERED: DILAUDID2 MG PO (22:36)
[2018-04-24] MEDS ORDERED: NAPROXEN500 MG PO (00:14)
== END 2018-04-24 00:35 | disposition home or self-care (01) ==
LOC: ED 22:18
DX: G89.18 Other acute postprocedural pain (principal); M54.6 Pain in thoracic spine; G89.29 Other chronic pain; I10 Essential (primary) hypertension; Z87.891 Personal history of nicotine dependence; Z79.899 Other long term (current) drug therapy
CPT/HCPCS: 96374; 99283; J1170

== ENCOUNTER 2020-12-13 15:17 | Emergency (ER) | payer MEDICARE, OTHER ==
[~2020-12-13] VITALS: Ht 162.6 cm; Wt 93.0 kg
[~2020-12-13 15:17] MED LIST changes: +CYMBALTA60 MG PO; +DILAUDID2 MG PO; +NAPROXEN500 MG PO; +TRAZODONE HCL100 MG PO
--- OUTSIDE RECORDS SUMMARY | 2020-12-13 15:22 | XMS ---
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 E.Olimpia. VISIT COUNT (12 MO.) [address] [place] [address] TOTAL 2 NOTE: Visits indicate total known visits. ED/UCC VISIT TRACKING (12 MO.) 12[facility]2020 [facility] [place] [facility] Emergency COMPLAINT: - POSSIBLE REACTION TO MEDICATION 12/09/2020 18:54 [facility] [place] TYPE: Emergency DIAGNOSES: 71172. Leg pain post surgery 04037. Other acute postprocedural pain INPATIENT VISIT TRACKING (12 MO.) 11/24/2020 08:34 [facility] [place] TYPE: Neuro Surgery DIAGNOSES: . Spinal stenosis, lumbar region without neurogenic claudication . Other intervertebral disc degeneration, lumbar region . Arthrodesis status . Spinal stenosis, lumbar region with neurogenic claudication . Radiculopathy, lumbar region . Other chronic postprocedural pain . Other intervertebral disc displacement, lumbar region [id number]
[2020-12-13] MEDS ORDERED: GABAPENTIN100 MG PO (15:47)
[2020-12-13] MEDS ORDERED: OXYCODONE HCL5 MG PO (15:48)
[2020-12-13] MEDS ORDERED: CEPHALEXIN500 MG PO (17:19)
== END 2020-12-13 17:26 | disposition home or self-care (01) ==
LOC: ED 15:17
DX: T81.49XA Infection following a procedure, other surgical site, initial encounter (principal); K21.9 Gastro-esophageal reflux disease without esophagitis; I10 Essential (primary) hypertension; Z87.891 Personal history of nicotine dependence; Z79.899 Other long term (current) drug therapy
CPT/HCPCS: 99283

== ENCOUNTER 2022-01-04 05:35 | Day surgery (SDC) | payer MEDICARE, OTHER ==
--- NOTE | 2021-12-22 14:15 | NUR ---
DOS:01-04-22 FFW: HAS ONE AND WILL BRING IT ON THE DAY OF SURGERY SHOWER: STEP OVER AND HAS SHOWER CHAIR TOILETS: HAS RISER STEP: 1 TO GET INTO THE HOME THAN IT IS ONE LEVEL APPOINTMENTS AND PHYSIICAL THERAPY: HER WILL BE HOME WITH HER AND GET HER TO APPOINTMENTS AND PHYSICAL THERAPY,
[~2022-01-04] VITALS: Ht 162.6 cm; Wt 79.1 kg
--- NOTE | ~2022-01-04 | OR ---
[facility] [address], [place] [address] Draft DATE OF OPERATION: 01/04/2022 SURGEON: Franco Johnson MD PREOPERATIVE DIAGNOSIS: DJD, left hip. POSTOPERATIVE DIAGNOSIS: DJD, left hip. PROCEDURE PERFORMED: Left total hip arthroplasty. RECEIVABLE EXECUTIVE: Marcie Schroeder PA-C. Marcie was present and critical for all portions of procedure. ANESTHESIA: General. BLOOD LOSS: 400 mL. IMPLANTS: [place] Accolade II size 4, 52 mm cup with two 6.5 screws, +2.5 ceramic head. BRIEF HISTORY: Aydee is a 66-year-old female with significant arthritis in her hip. Her past medical history is significant for several spine operations with fusions of her lumbar spine and SI joints. She also has an implantable nerve stimulator, which precludes the use of spinal anesthetic. So, risks and benefits of operative treatment under general anesthetic were discussed with her and she elected to proceed. DESCRIPTION OF PROCEDURE: Once consent was obtained, she was taken to the operating room, placed in the right lateral decubitus position, axillary roll was placed and the leg was prepped and draped in the standard sterile fashion. Due to the flexion of her pelvis that was permanent because of the fusions, her pins in the pelvic brim for the Aidan were placed but were very close to the incision. We went ahead and made an anterior lateral approach through skin and subcutaneous tissue. The IT band was divided longitudinally. The vastus PATIENT NAME: AYDEE DINH [facility] OPERATIVE REPORT DATE OF : 59 REPORT #: [id number] PHYSICIAN: FRANCO JOHNSON MD PCP: MIN NGUYEN MD REPORT IS CONFIDENTIAL AND NOT TO BE RELEASED WITHOUT AUTHORIZATION [facility] [address], [place] [address] Draft lateralis was divided from the tip of the trochanter anteriorly to the inferior base of the incision. This was then subperiosteally elevated around to the level of the lesser trochanter. The gluteus medius and capsule were split from the tip of the trochanter to the acetabular rim and a partial capsulotomy was performed. Capsular release from the trochanter was obtained. The checkpoint for the Aidan was placed and the bleeders were cauterized as we went. Her pressure was fairly uncontrolled of 199 throughout the first half of the procedures. There was a fair amount of bleeding. We gave her a second gram of TXA and when the pressure was brought down, her bleeding was well controlled. We then dislocated the hip and made the femoral neck cut one fingerbreadth above the lesser trochanter. The femoral head was removed. Periacetabular soft tissue was removed. The leg and acetabular fine points were registered with the computer. However, we brought the reamer and the robot would not register not to give power to the reamer. After multiple attempts, we decided to abandon the robot partially because of this and partially because of the pins being in the way. We then reamed the acetabulum up to a 52 in 16 degrees of anteversion and 40 degrees of abduction. We then placed the cup and impacted it into position. Two screws were placed in the posterior superior quadrant. The liner was then impacted until it was well-seated. Attention was turned to proximal femur. The proper proximal femur was opened using paula cutter followed by the Anson awl. It was then sequentially broached up to a 3. Initial reductions using up to a 7.5 head were unsatisfactory in terms of leg length or stability. There was a significant shock. We then removed the 3, placed a 4, which was a little bit proud of the cut but much more stable. With a +2.5 head, this was quite stable and leg lengths were equal. We then dislocated and removed the trials. The final stem was impacted until it was well-seated same level as the broach. The +2.5 head was then impacted and the hip was reduced. Normal leg lengths and excellent stability with a negative shock were obtained. Wound copiously irrigated throughout the procedure. A total of 3 L of normal saline was used. There was an Irrisept soak in the middle. The capsule was closed using #1 Vicryl. The vastus and IT bands were closed independently using #2 Stratafix, subcutaneous tissue with two #0 Stratafix, and skin with a 3-0 Stratafix. The wound was then sealed with Dermabond. The wound was dressed with an Aquacel dressing. She was awakened, taken to the recovery room in satisfactory condition. All sponge, needle, and instrument counts were correct. Franco Johnson MD BA/MODL /[id number] PATIENT NAME: AYDEE DINH OPERATIVE REPORT DATE OF : 59 REPORT #: [id number] PHYSICIAN: FRANCO JOHNSON MD PCP: MIN NGUYEN MD REPORT IS CONFIDENTIAL AND NOT TO BE RELEASED WITHOUT AUTHORIZATION [facility] [address] [facility] [place], [place] [address] Draft Copies: ~ PATIENT NAME: ALLEGRAAYDEE ADOLFO OPERATIVE REPORT DATE OF : 59 REPORT #: [id number] PHYSICIAN: FRANCO JOHNSON MD PCP: MIN NGUYEN MD REPORT IS CONFIDENTIAL AND NOT TO BE RELEASED WITHOUT AUTHORIZATION
[~2022-01-04 05:35] MED LIST changes: +GABAPENTIN100 MG PO
[2022-01-04] MEDS ORDERED: XARELTO10 MG PO (09:16)
[2022-01-04] MEDS ORDERED: HYDROMORPHONE HC2 MG PO (09:16)
[2022-01-04] MEDS ORDERED: DICLOFENAC SODI75 MG PO (09:16)
[2022-01-04] MEDS ORDERED: HEALTHYLAX17 GM PO (09:17)
[2022-01-04] MEDS ORDERED: GABAPENTIN600 MG PO (09:17)
[2022-01-04] MEDS ORDERED: SENNA LAX8.6 MG PO (09:17)
[2022-01-04] MEDS ORDERED: OXYCONTIN10 MG PO (09:17)
[2022-01-04] MEDS ORDERED: ACETAMINOPHEN500 MG PO (09:17)
[2022-01-04] MEDS ORDERED: CEFPROZIL500 MG PO (09:18)
--- NOTE | 2022-01-04 09:25 | NUR ---
01/04/22 0910 Vivian Michelle 0920 PATIENT ARRIVES TO PACU UNRESPONSIVE TO PAIN. ORAL AIRWAY IN PLACE. RESP EVEN AND UNLABORED, MASK AT 8 LITERS, DECREASED TO 6 LITERS.
--- NOTE | 2022-01-04 10:15 | NUR ---
PT ARRIVES TO DAY SURGERY ROOM #6 ALERT AND ORIENTED. PT SMILING AND STATING HOW MUCH BETTER THIS EXPERIENCE IS COMPARED TO HER LAST EXPERIENCE AT ANOTHER HOSPITAL. PT PROVIDED JELL-O SHE IS WANTING A PAIN PILL. PT HAS ICE WATER AND IS SIPPING ON IT. TOLERATING WELL. CRYOCUFF IN PLACE WITH BARRIER BETWEEN CRYOCUFF AND SKIN. ANNITA HOSE IN PLACE, FOOT PUMPS ON. PT'S AT THE BEDSIDE, BED RAILS UP, CALL LIGHT PROVIDED AND EDUCATED TO USE IF NEEDING TO GET UP OR FOR ANY NEEDS. PT STATES UNDERSTANDING TO THIS.
--- NOTE | 2022-01-04 11:00 | NUR ---
1100-CHARLEE WHISKEY PROOF READER IN THE ROOM DOING A RESCUE BLOCK. 1110-PATIENT AWAKE AND LAYING IN BED. RESP RATE EVEN AND UNLABORED. RATES PAIN 4/10 AND THIS IS TOLERABLE AT THIS TIME. DRESSING HAS A SMALL AMOUNT OF RED DRAINAGE. CRYO CUFF IN PLACE AND RUNNING. AT BEDSIDE. CALL LIGHT WITHIN REACH.
--- NOTE | 2022-01-04 12:38 | NUR ---
1238-PATIENT AWAKE AND EATING LUNCH. RESP EVEN AND UNLABORED. RATES PAIN 4/10. WOULD LIKE SECOND PAIN PILL. DRESSING HAS SMALL AMOUNT OF DRAINAGE. CRYO CUFF IN PLACE AND RUNNING. IN ROOM. 1244-SECOND PAIN PILL GIVEN PER EMAR 1250-PATIENT UP TO BEDSIDE COMMODE WITH 2 RN ASSIST. PATIENT VOIDED 300ML. TOLERATED WELL. 1300-PATIENT BACK TO BED. CALL LIGHT WITHIN REACH.
--- NOTE | 2022-01-04 13:12 | NUR ---
RATES PAIN 5/10 BUT DECREASING. STATES PAIN WENT UP WHEN SHE WAS UP TO THE BEDSIDE COMMODE BUT TOLERABLE AT THIS TIME.
--- NOTE | 2022-01-04 13:44 | NUR ---
PT RESTING IN BED WITH FAMILY AT BEDSIDE, AWAKE AND ALERT. PT DENIES ANY NEEDS AT THIS TIME AND RATES PAIN 4/10 WHEN ASKED. PT STATES BEING READY FOR PHYSICAL THERAPY, THIS RN CONTACTS BISHNU WHO WILL BE TO DS DEPT SOON. CALL LIGHT WITHIN REACH.
[2022-01-04] MEDS ORDERED: OXYCODONE HCL5 MG PO (13:46)
--- NOTE | 2022-01-04 18:23 | NUR ---
1430-PATINET PASSED PHYSICAL THERAPY. 1435-PATIENT SITTING UP IN BED AND DRESSED READY TO GO HOME. RATES PAIN 5/10 SINCE COMPLETING PT. REQUESTING PAIN MEDICATION. DENIES NAUSEA. AT BEDSIDE. 1500-DISCHARGE INSTRUCTIONS PROVIDED TO PATIENT AND . ALL QUESTIONS ANSWERED. WENT OVER MEDICATIONS AND TIMES TO TAKE. PATIENT AMBULATES WITH WALKER TO WHEELCHAIR. TOLERATED WELL. WHEELCHAIR RIDE PROVIDED TO FRONT OF HOSPITAL WHERE WAS WAITING WITH THE TRUCK.
== END 2022-01-04 15:00 | disposition home or self-care (01) ==
LOC: DSVR 05:35 → DS 05:35 → EDSTATUS 07:00 → DSVR 07:00 → DS 15:00 → DSVR 15:00
PROVIDERS: ATTEND Specialist
PROC: 8E0YXBZ Computer Assisted Procedure of Lower Extremity (ICD-10-PCS; 2022-01-04)
PROC: 0SRB0JZ Replacement of Left Hip Joint with Synthetic Substitute, Open Approach (ICD-10-PCS; principal; 2022-01-04 07:00)
DX: M16.12 Unilateral primary osteoarthritis, left hip (principal); G89.18 Other acute postprocedural pain; I10 Essential (primary) hypertension; E03.9 Hypothyroidism, unspecified; Z88.1 Allergy status to other antibiotic agents; Z88.8 Allergy status to other drugs, medicaments and biological substances; Z87.891 Personal history of nicotine dependence
CPT/HCPCS: 72170; A9270; J1100; J1170; J1885; J2001; J2250; J2405; J2704; J2795; J3010; J3370; J3475; J7060; J7121

== ENCOUNTER 2022-05-07 16:15 | Emergency (ER) | payer MEDICARE, OTHER ==
[~2022-05-07] VITALS: Ht 162.6 cm; Wt 78.9 kg
[~2022-05-07 16:15] MED LIST changes: +ACETAMINOPHEN500 MG PO; +CEFPROZIL500 MG PO; +DICLOFENAC SODI75 MG PO; +GABAPENTIN600 MG PO; +HEALTHYLAX17 GM PO; +HYDROMORPHONE HC2 MG PO; +OXYCONTIN10 MG PO; +SENNA LAX8.6 MG PO; +XARELTO10 MG PO
--- OUTSIDE RECORDS SUMMARY | 2022-05-07 16:18 | XMS ---
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 Luis M VISIT COUNT (12 MO.) 1 [facility] TOTAL 1 NOTE: Visits indicate total known visits. ED/UCC VISIT TRACKING (12 MO.) 05/07/2022 16:16 [facility] [place] TYPE: Emergency COMPLAINT: - RT LEG INJURY INPATIENT VISIT TRACKING (12 MO.) 01/04/2022 05:35 [facility] [place] TYPE: Surgery COMPLAINT: - LEFT TOTAL HIP REPLACEMENT DIAGNOSES: - Unilateral primary osteoarthritis, left hip [id number]
[2022-05-07] MEDS ORDERED: HYDROCODON-ACE1 EA10 PO (21:05)
== END 2022-05-07 21:22 | disposition home or self-care (01) ==
LOC: ED 16:15
DX: S76.301A Unspecified injury of muscle, fascia and tendon of the posterior muscle group at thigh level, right thigh, initial encounter (principal); W01.0XXA Fall on same level from slipping, tripping and stumbling without subsequent striking against object, initial encounter; I10 Essential (primary) hypertension; Z87.891 Personal history of nicotine dependence; Z88.8 Allergy status to other drugs, medicaments and biological substances; Z88.1 Allergy status to other antibiotic agents; Z79.899 Other long term (current) drug therapy
CPT/HCPCS: 73552; 99283-25; A9270

== ENCOUNTER 2023-08-23 04:16 | Emergency (ER) | payer MEDICARE, OTHER ==
[~2023-08-23] VITALS: Ht 162.6 cm; Wt 77.1 kg
[~2023-08-23 04:16] MED LIST changes: +HYDROCODON-ACE1 EA10 PO
--- OUTSIDE RECORDS SUMMARY | 2023-08-23 04:19 | XMS ---
PreManage Notification: ARIANE DINH Security Qm Nurse Events No recent Security Events currently on file CRITERIA MET - Group Notification CARE PROVIDERS MIN NGUYEN Family [facility] 07/02/2020-Current PHONE: [phone] [facility] YUMIKO Figueroa PHONE: [phone] Sangeeta has no Care Guidelines for this patient. Luis M VISIT COUNT (12 MO.) 1 [facility] TOTAL 1 NOTE: Visits indicate total known visits. ED/UCC VISIT TRACKING (12 MO.) 08/23/2023 04:17 [facility] [place] TYPE: Emergency COMPLAINT: - RT LEG PAIN INPATIENT VISIT TRACKING (12 MO.) No inpatient visits to display in this time frame [id number]
[2023-08-23] MEDS ORDERED: ONDANSETRON ODT8 MG PO (04:29)
[2023-08-23] MEDS ORDERED: PERCOCET 5-3251 EACH PO (05:35)
[2023-08-23 06:00] VITALS: BP 134/87
== END 2023-08-23 06:00 | disposition home or self-care (01) ==
LOC: ED 04:16
DX: M16.11 Unilateral primary osteoarthritis, right hip (principal); I10 Essential (primary) hypertension; Z87.891 Personal history of nicotine dependence; Z88.8 Allergy status to other drugs, medicaments and biological substances; Z88.1 Allergy status to other antibiotic agents; Z79.899 Other long term (current) drug therapy; Z79.890 Hormone replacement therapy
CPT/HCPCS: 71045; 73502; 96372; 99284-25; J1885; J2270